=== PATIENT | male | born 1995 | race Caucasian/White ===

== ENCOUNTER 2021-08-31 00:18 | Inpatient (IN) | payer BC, OTHER ==
[2021-08-31] MEDS ORDERED: SODIUM CHLORIDE 0.9% 1,000 ML IV ONE (00:50)
--- NOTE | 2021-08-31 01:23 | ED ---
Extremity Problem HPI - General Chief complaint: Extremity Problem,Nontraumatic Stated complaint: Groin Pain Time Seen by Provider: 08/31/21 00:45 Source: patient, RN notes reviewed Mode of arrival: ambulatory - History of Present Illness Initial comments: This is a pleasant 26-year-old male who presents to the emergency department with right leg swelling and discoloration. Patient states that he had pain in the right groin and now notices swelling in the leg. No headache, no fever or chills, no changes in vision or hearing, no sore throat or difficulty with speech, no neck pain, no chest pain or shortness of breath, no abdominal pain, no nausea or vomiting, no changes in urination or bowel movements, no numbness or tingling, no skin rashes or lesions. MD Complaint: extremity pain - Related Data Allergies Allergy/AdvReac Type Severity Reaction Status Date / Time No Known Allergies Allergy Verified 08/31/21 00:41 Review of Systems ROS Statement: Those systems with pertinent positive or pertinent negative responses have been documented in the HPI. ROS Other: All systems not noted in ROS Statement are negative. Past Medical History Past Medical History: No Reported History History of Any Multi-Drug Resistant Organisms: None Reported Past Surgical History: No Surgical Hx Reported Past Psychological History: No Psychological Hx Reported Smoking Status: Vaper Past Alcohol Use History: None Reported Past Drug Use History: None Reported - Past Family History Father Family Medical History: Deep Vein Thrombosis (DVT) General Exam - General Exam Comments Initial Comments: Patient in no acute distress. Vital signs are reviewed. Patient afebrile. General appearance: alert, in no apparent distress Head exam: Present: atraumatic, normocephalic, normal inspection Eye exam: Present: normal appearance, PERRL, EOMI. Absent: scleral icterus, conjunctival injection, periorbital swelling ENT exam: Present: normal exam, mucous membranes moist Neck exam: Present: normal inspection. Absent: tenderness, meningismus, lymphadenopathy Respiratory exam: Present: normal lung sounds bilaterally. Absent: respiratory distress, wheezes, rales, rhonchi, stridor Cardiovascular Exam: Present: regular rate, normal rhythm, normal heart sounds. Absent: systolic murmur, diastolic murmur, rubs, gallop, clicks GI/Abdominal exam: Present: soft, normal bowel sounds. Absent: distended, tenderness, guarding, rebound, rigid Extremities exam: Present: full ROM, normal capillary refill (Capillary refill is less than 2 seconds. Pulses are 2+ to 4.), pedal edema (Right leg), other (Circumferential edema noted to right leg, compartments are soft, pulses are intact, capillary refill is less than 2 seconds.). Absent: normal inspection (Patient does have a mild, dark erythematous hue to the skin overlying the right lower extremity. No calor.), tenderness, joint swelling, calf tenderness Back exam: Present: normal inspection Neurological exam: Present: alert, oriented X3, CN II-XII intact Psychiatric exam: Present: normal affect, normal mood Skin exam: Present: warm, dry, intact, normal color, erythema (Right leg). Absent: rash Course Vital Signs 08/31/21 00:36 Temperature 98 F Pulse Rate 79 Respiratory 19 Rate Blood Pressure 132/78 O2 Sat by Pulse 98 Oximetry - Reevaluation(s) Reevaluation #1: 08/31/21 02:51 Medical record is reviewed Symptoms are improved here in the emergency department Patient is informed of results and questions answered Patient in no distress - Consultations Consultation #1: Vascular surgery consult. At 2 AM Medical Decision Making - Medical Decision Making Patient presents with edema to the right lower extremity. This is circumferential. Pulses are intact. Vascular surgery was consulted at 2 AM. He agreed with high intensity heparin protocol. Patient will be admitted for further evaluation and treatment. - Lab Data Result diagrams: 08/31/21 01:55 Lab Results 08/31/21 Range/Units 01:55 WBC 10.0 (3.8-10.6) k/uL RBC 5.04 (4.30-5.90) m/uL Hgb 15.0 (13.0-17.5) gm/dL Hct 45.8 (39.0-53.0) % MCV 90.9 (80.0-100.0) fL MCH 29.7 (25.0-35.0) pg MCHC 32.7 (31.0-37.0) g/dL RDW 12.4 (11.5-15.5) % Plt Count 170 (150-450) k/uL MPV 9.0 Neutrophils % 65 % Lymphocytes % 23 % Monocytes % 7 % Eosinophils % 3 % Basophils % 1 % Neutrophils # 6.5 (1.3-7.7) k/uL Lymphocytes # 2.3 (1.0-4.8) k/uL Monocytes # 0.7 (0-1.0) k/uL Eosinophils # 0.3 (0-0.7) k/uL Basophils # 0.1 (0-0.2) k/uL - Radiology Data Radiology results: report reviewed, image reviewed Disposition Clinical Impression: Deep vein thrombosis (DVT) of iliac vein of right lower extremity Disposition: ADMITTED IP TO THIS [facility] Condition: Stable Time of Disposition: 02:03
--- NOTE | 2021-08-31 01:38 | US ---
EXAMINATION TYPE: US venous doppler duplex LE RT DATE OF EXAM: 08/31/2021 1:18 AM COMPARISON: NONE CLINICAL HISTORY: leg pain. Patient states he has right groin pain x 5 days; patient states his right leg became red and tense today. SIDE PERFORMED: Right TECHNIQUE: The lower extremity deep venous system is examined utilizing real time linear array sonog lionel with graded compression, doppler sonography and color-flow sonography. VESSELS IMAGED: Common Femoral Vein Deep Femoral Vein Greater Saphenous Vein * Femoral Vein Popliteal Vein Small Saphenous Vein * Proximal Calf Veins (* superficial vessels) PTV Myke v Right Leg: Rouleaux flow throughout entire lower extremity. Difficulty compressing RLE veins and shirley ited blood flow throughout. IMPRESSION: No evidence of deep vein thrombosis in the right leg. There is slow flow in the veins.
[2021-08-31] MEDS ORDERED: HEPARIN SODIUM 1,000 UN/ML (10ML VL) IV ONE (01:56)
[2021-08-31] MEDS ORDERED: HEPARIN SODIUM 1,000 UN/ML (10ML VL) IV PRN (01:56)
[2021-08-31 02:11] LABS: Basophils # (A) 0.1 k/uL (0-0.2); Basophils % (A) 1 %; Eosinophils # (A) 0.3 k/uL (0-0.7); Eosinophils % (A) 3 %; HCT 45.8 % (39.0-53.0); Lymphocytes # (A) 2.3 k/uL (1.0-4.8); Lymphocytes % (A) 23 %; MCH 29.7 pg (25.0-35.0); MCHC 32.7 g/dL (31.0-37.0); MCV 90.9 fL (80.0-100.0); Monocytes # (A) 0.7 k/uL (0-1.0); Monocytes % (A) 7 %; Neutrophils # (A) 6.5 k/uL (1.3-7.7); Neutrophils % (A) 65 %; Platelet Count 170 k/uL (150-450); RBC 5.04 m/uL (4.30-5.90); RDW 12.4 % (11.5-15.5)
[2021-08-31] MEDS ORDERED: ONDANSETRON 4 MG/2 ML VIAL IVP PRN (02:44)
[2021-08-31] MEDS ORDERED: NALOXONE 0.4 MG/ML 1 ML VIAL IV PRN (02:44)
[2021-08-31] MEDS ORDERED: MORPHINE SULFATE 4 MG/ML SYRINGE IV STA (02:50)
[2021-08-31] MEDS: HEPARIN SOD,PORK IN 0.45% NACL 25,000 UNIT in 0.45% NACL 1 250ML.BAG IV SCH ×2 (02:50→18:06)
[2021-08-31] MEDS: SODIUM CHLORIDE 0.9% 1,000 ML IV SCH ×2 (02:59→12:01)
[2021-08-31 03:29] LABS: Potassium 3.9 mmol/L (3.5-5.1)
[2021-08-31 03:30] LABS: ALT 10 U/L (4-49); AST 17 U/L (17-59); African American GFR (CKD) >90 (>60 ml/min/1.73 sqM); Albumin 4.2 g/dL (3.5-5.0); Alkaline Phosphatase 65 U/L (38-126); Anion Gap 9 mmol/L; Blood Urea Nitrogen 17 mg/dL (9-20); Calcium 8.9 mg/dL (8.4-10.2); Carbon Dioxide 22 mmol/L (22-30); Chloride 106 mmol/L (98-107); Glucose 93 mg/dL (74-99); Non-African American GFR(CKD) >90 (>60 ml/min/1.73 sqM); Sodium 137 mmol/L (137-145); Total Bilirubin 0.6 mg/dL (0.2-1.3); Total Protein 7.5 g/dL (6.3-8.2)
[2021-08-31 03:48] LABS: INR 1.1 (<1.2); Partial Thromboplastin Time 79.4 sec (22.0-30.0); Prothrombin Time 12.2 sec (9.0-12.0)
[2021-08-31] MEDS: MORPHINE SULFATE 4 MG/ML SYRINGE IV PRN (09:14)
[2021-08-31] MEDS: IOPAMIDOL CONTRAST (ORAL USE) VIAL PO PRN ×2 (11:04→11:32)
--- NOTE | 2021-08-31 11:51 | P.GSCN ---
History of Present Illness Consult date: 08/31/21 Reason for Consult: DVT History of present illness: This a 26-year-old male who presented to the emergency department with complaints of right groin pain that started a few days ago. He then noticed that the right lower extremity started becoming swollen tense and hard been having some tingling as well as color change. He denied any trauma to his right leg. Denies any other previous issues with DVT or pulmonary embolism. He denies any pain with ambulation. He denies any recent surgery, recent travel, denies sedentary lifestyle, or history of clotting disorder. He does state his maternal aunt has a history of the 2 or 3 DVTs unprovoked and is on life long anti-coagulation. Labs were unremarkable. He was started on a heparin drip. Venous duplex showed no evidence of deep vein thrombosis in the right leg. Slow flow in the veins. Review of Systems A 14 point review of systems was completed all pertinent positives and negatives as stated in the HPI. Past Medical History Past Medical History: No Reported History History of Any Multi-Drug Resistant Organisms: None Reported Past Surgical History: No Surgical Hx Reported Past Anesthesia/Blood Transfusion Reactions: No Reported Reaction Past Psychological History: No Psychological Hx Reported Smoking Status: Vaper Past Alcohol Use History: None Reported Past Drug Use History: None Reported - Past Family History Father Family Medical History: Deep Vein Thrombosis (DVT) Medications and Allergies Home Medications Medication Instructions Recorded Confirmed Type Acetaminophen Tab [Tylenol Tab] 1,000 mg PO Q6HR PRN 08/31/21 08/31/21 History Cholecalciferol [Vitamin D3 (25 25 mcg PO DAILY 08/31/21 08/31/21 History Mcg = 1000 Iu)] Ibuprofen [Motrin Ib] 800 mg PO Q8H PRN 08/31/21 08/31/21 History Vitamin B Complex 1 cap PO DAILY 08/31/21 08/31/21 History Zinc 50 mg PO DAILY 08/31/21 08/31/21 History Allergies Allergy/AdvReac Type Severity Reaction Status Date / Time No Known Allergies Allergy Verified 08/31/21 06:51 Surgical - Exam Vital Signs Temp Pulse Resp BP Pulse Ox 98 F 79 19 132/78 98 08/31/21 00:36 08/31/21 00:36 08/31/21 00:36 08/31/21 00:36 08/31/21 00:36 General appearance: The patient is alert, oriented, appears in no acute distress. HET: Head is normocephalic and atraumatic. Neck: Supple without lymphadenopathy. Trachea midline. No audible carotid bruit. Heart: S1 S2. Regular rate and rhythm. Lungs: Clear to auscultation bilaterally. Abdomen: Soft, nontender, nondistended. Extremities: Normal skin color and turgor. Tenderness to palpation in right groin/pelvis. No tenderness in the right calf with squeezing. Right lower extremity edema. Radial and pedal pulses are 2/4 bilaterally. Neurological: No focal deficits. Strength and sensation are grossly intact. Results - Labs 08/31/21 01:55 08/31/21 02:57 Abnormal Lab Results - Last 24 Hours (Table) 08/31/21 08/31/21 Range/Units 03:10 10:46 PT 12.2 H (9.0-12.0) sec APTT 79.4 H 67.6 H (22.0-30.0) sec Diabetes panel 08/31/21 Range/Units 02:57 Sodium 137 (137-145) mmol/L Potassium 3.9 (3.5-5.1) mmol/L Chloride 106 (98-107) mmol/L Carbon Dioxide 22 (22-30) mmol/L BUN 17 (9-20) mg/dL Creatinine 0.84 (0.66-1.25) mg/dL Glucose 93 (74-99) mg/dL Calcium 8.9 (8.4-10.2) mg/dL AST 17 (17-59) U/L ALT 10 (4-49) U/L Alkaline Phosphatase 65 (38-126) U/L Total Protein 7.5 (6.3-8.2) g/dL Albumin 4.2 (3.5-5.0) g/dL Calcium panel 08/31/21 Range/Units 02:57 Calcium 8.9 (8.4-10.2) mg/dL Albumin 4.2 (3.5-5.0) g/dL Pituitary panel 08/31/21 Range/Units 02:57 Sodium 137 (137-145) mmol/L Potassium 3.9 (3.5-5.1) mmol/L Chloride 106 (98-107) mmol/L Carbon Dioxide 22 (22-30) mmol/L BUN 17 (9-20) mg/dL Creatinine 0.84 (0.66-1.25) mg/dL Glucose 93 (74-99) mg/dL Calcium 8.9 (8.4-10.2) mg/dL Adrenal panel 08/31/21 Range/Units 02:57 Sodium 137 (137-145) mmol/L Potassium 3.9 (3.5-5.1) mmol/L Chloride 106 (98-107) mmol/L Carbon Dioxide 22 (22-30) mmol/L BUN 17 (9-20) mg/dL Creatinine 0.84 (0.66-1.25) mg/dL Glucose 93 (74-99) mg/dL Calcium 8.9 (8.4-10.2) mg/dL Total Bilirubin 0.6 (0.2-1.3) mg/dL AST 17 (17-59) U/L ALT 10 (4-49) U/L Alkaline Phosphatase 65 (38-126) U/L Total Protein 7.5 (6.3-8.2) g/dL Albumin 4.2 (3.5-5.0) g/dL - Imaging Comments: Right lower extremity venous Doppler reports no evidence of deep vein thrombosis in the right leg there is slow flow in the veins. Assessment and Plan Assessment: 1. Right lower extremity pain with swelling 2. Slow flow in veins of right lower extremity per venous duplex Plan: 1. Continue heparin drip at this time 2. CT abdomen and pelvis venous phase ordered 3. Will consult hematology 4. Further recommendations forthcoming per vascular surgeon Thank you for this consultation, we will continue to follow. The impression and plan of care has been dictated as directed. Dr. Troncoso I performed a history and examination of this patient, discussed the same with the dictator. I agree with the dictator's note ,documented as a scribe. Any additional findings or plans will be noted.
--- NOTE | 2021-08-31 12:10 | P.HPIM ---
History of Present Illness 26-year-old male came in with complaints of right lower extremity swelling and tingling numbness in change in color. Patient denied any trauma. Patient does have family history of DVT in multiple family members. Although there is no DVT that was evident in the right lower DVT but showed significantly slowed venous flow in the right leg. Because of this is a concern that patient may have iliac thrombus because of which patient will undergo CT of the abdomen with contrast. Patient denied any significant unintentional weight loss. Patient doesn't have any fever chills patient denied any chest pain at this time. Denied any shortness of breath. Patient is having some pain in the right lower extremity and predominantly in the right groin area. REVIEW OF SYSTEMS: CONSTITUTIONAL: No fever, no malaise, no fatigue. HEENT: No recent visual problems or hearing problems. Denied any sore throat. CARDIOVASCULAR: No chest pain, orthopnea, PND, no palpitations, no syncope. PULMONARY: No shortness of breath, no cough, no hemoptysis. GASTROINTESTINAL: No diarrhea, no nausea, no vomiting, no abdominal pain. NEUROLOGICAL: No headaches, no weakness, no numbness. HEMATOLOGICAL: Denies any bleeding or petechiae. GENITOURINARY: Denies any burning micturition, frequency, or urgency. MUSCULOSKELETAL/RHEUMATOLOGICAL: Denies any joint pain, swelling, or any muscle pain. ENDOCRINE: Denies any polyuria or polydipsia. The rest of the 14-point review of systems is negative. PHYSICAL EXAMINATION: GENERAL: The patient is alert and oriented x3, not in any acute distress. Well developed, well nourished. HEENT: Pupils are round and equally reacting to light. EOMI. No scleral icterus. No conjunctival pallor. Normocephalic, atraumatic. No pharyngeal erythema. No thyromegaly. CARDIOVASCULAR: S1 and S2 present. No murmurs, rubs, or gallops. PULMONARY: Chest is clear to auscultation, no wheezing or crackles. ABDOMEN: Soft, nontender, nondistended, normoactive bowel sounds. No palpable organomegaly. MUSCULOSKELETAL: As mentioned in HPI EXTREMITIES: No cyanosis, clubbing, edema of the right lower extremity NEUROLOGICAL: Gross neurological examination did not reveal any focal deficits. SKIN: No rashes. Assessment and plan -Right lower exudate swelling and pain: Possibility of for DVT in the right erick cs, CT of the abdomen as mentioned above. Patient will be continued on IV heparin -Nicotine use: Counseling was provided DVT prophylaxis: Patient is on IV heparin Past Medical History Past Medical History: No Reported History History of Any Multi-Drug Resistant Organisms: None Reported Past Surgical History: No Surgical Hx Reported Past Anesthesia/Blood Transfusion Reactions: No Reported Reaction Past Psychological History: No Psychological Hx Reported Smoking Status: Vaper Past Alcohol Use History: None Reported Past Drug Use History: None Reported - Past Family History Father Family Medical History: Deep Vein Thrombosis (DVT) Medications and Allergies Home Medications Medication Instructions Recorded Confirmed Type Acetaminophen Tab [Tylenol Tab] 1,000 mg PO Q6HR PRN 08/31/21 08/31/21 History Cholecalciferol [Vitamin D3 (25 25 mcg PO DAILY 08/31/21 08/31/21 History Mcg = 1000 Iu)] Ibuprofen [Motrin Ib] 800 mg PO Q8H PRN 08/31/21 08/31/21 History Vitamin B Complex 1 cap PO DAILY 08/31/21 08/31/21 History Zinc 50 mg PO DAILY 08/31/21 08/31/21 History Allergies Allergy/AdvReac Type Severity Reaction Status Date / Time No Known Allergies Allergy Verified 08/31/21 06:51 Physical Exam Vitals: Vital Signs Temp Pulse Resp BP Pulse Ox 08/31/21 07:58 98.3 F 12 08/31/21 00:36 98 F 79 19 132/78 98 Intake and Output 08/30/21 08/31/21 08/31/21 22:59 06:59 14:59 Intake Total 293.4 142.543 Balance 293.4 142.543 Intake: Intake, IV Titration 293.4 142.543 Amount Heparin Sod,Pork in 0.45% 33.4 142.543 NaCl 25,000 unit In 0.45 % NaCl 1 250ml.bag @ 18 UNITS/KG/HR 16.737 mls/hr IV .[id number] [facility] Rx#: [id number] Sodium Chloride 0.9% 1, 260 000 ml @ 130 mls/hr IV . Q7H42M [facility] Rx#:[id number] Other: Weight 92.986 kg Results CBC & Chem 7: 08/31/21 01:55 08/31/21 02:57 Labs: Abnormal Lab Results - Last 24 Hours (Table) 08/31/21 08/31/21 Range/Units 03:10 10:46 PT 12.2 H (9.0-12.0) sec APTT 79.4 H 67.6 H (22.0-30.0) sec Thrombosis Risk Factor Assmnt - Choose All That Apply Any of the Below Risk Factors Present?: Yes Each Factor Represents 1 point: Obesity (BMI >25) Each Risk Factor Represents 3 Points: Family history of DVT/PE Thrombosis Risk Factor Assessment Total Risk Factor Score: 4 Thrombosis Risk Factor Assessment Level: Moderate Risk
--- NOTE | 2021-08-31 13:20 | CT ---
EXAMINATION TYPE: CT abdomen pelvis w con DATE OF EXAM: 08/31/2021 COMPARISON: Venous Doppler study dated 08/31/2021 HISTORY: Right inguinal pain and swelling. CT DLP: 1291.6 mGycm Automated exposure control for dose reduction was used. TECHNIQUE: Helical acquisition of images was performed from the lung bases through the pelvis. CONTRAST: Performed with Oral Contrast and with IV Contrast, patient injected with 100ml mL of Isovue 300. FINDINGS: LUNG BASES: Suspected tiny filling defect within the right lower lobe pulmonary arteries suggestive o f tiny pulmonary emboli. LIVER/GB: Unremarkable liver. Suspected tiny gallbladder calculus without evidence of acute cholecyst itis. PANCREAS: No significant abnormality is seen. SPLEEN: No significant abnormality is seen. ADRENALS: No significant abnormality is seen. KIDNEYS: Left extrarenal pelvis, otherwise unremarkable kidneys. FREE AIR: No free air is visualized. RETROPERITONEAL ADENOPATHY: None visualized REPRODUCTIVE ORGANS: No significant abnormality is seen URINARY BLADDER: Incompletely distended with slightly thickened wall, please correlate with urinalys is results. PELVIC ADENOPATHY: No pathologically enlarged pelvic lymph nodes. OSSEOUS STRUCTURES: No significant abnormality is seen. BOWEL: Suboptimal assessment of the small and large bowel due to paucity of intra-abdominal fat. No evidence of bowel obstruction. Fecal loading of the colon. OTHER: Elongated hyperdensity seen within the right external iliac vein extending for about 4.8 cm wi th increased size of the vein. This could represent an acute thrombus however other lesion at that lo cation cannot be excluded. Reduced enhancement of the visualized portion of the right lower extremity veins more inferiorly. Evident thrombus is seen within the more superior portion of the right medical doctor md al iliac vein as well as the right common iliac vein with extension of the thrombus into the most inf erior aspect of the IVC. The remainder of the IVC is apparently patent as well as the renal veins. Un remarkable left iliac veins. Associated significant fat stranding is seen in the right side of the pe lvis, right inguinal region and right upper thigh, possibly secondary to the deep venous thrombosis. Acute infectious/inflammatory process at that location can't be excluded. Small amount of fluid is se en in the pelvis. IMPRESSION: Deep venous thrombosis of the right common iliac vein extending to the inferior aspect of the IVC wit h apparent thrombosis of the remainder of the right iliac and visualized right lower extremity veins. Hyperdense area is seen within the right external iliac vein that could represent an acute thrombus h owever other lesion at that location can't be excluded. Suspected right lower lobe pulmonary emboli. Other findings as described above. Findings were discussed with the referring physician immediately after the CT scan was performed.
[2021-08-31] MEDS: HYDROcodone/APAP 7.5-325MG 1 EACH TAB PO PRN ×2 (13:49→19:23)
--- NOTE | 2021-08-31 15:30 | P.CONS ---
History of Present Illness - Reason for Consult Consult date: 08/31/21 RLE Pain, Requesting physician: Kailash Simmons - History of Present Illness Daniele is a 26 year old male patient presenting with pain in RLE, Doppler shows evidence of Rouleaux flow through entire RLE, although no evidence of acute thrombus. A Ct of Abdomen and Pelvis has been ordered to further assess iliac nodes and venous system. Review of CT abdomen reveal iliac vein Thrombus, present during discussion with Vascular surgery who plans on thrombolysis today. CTA ordered as well as PE could not be ruled out. He does have a family history of clotting in paternal aunt and father. Denies IV drug abuse, hormone or steroid injections into groin. He does state was sick a month ago, no vaccina tion against covid and no infection that he recalls. He states he takes multiple supplements and works out a lot. He does "vape" tobacco daily. Review of Systems All systems: negative Constitutional: Reports as per HPI Past Medical History Past Medical History: No Reported History History of Any Multi-Drug Resistant Organisms: None Reported Past Surgical History: No Surgical Hx Reported Past Anesthesia/Blood Transfusion Reactions: No Reported Reaction Past Psychological History: No Psychological Hx Reported Smoking Status: Vaper Past Alcohol Use History: None Reported Past Drug Use History: None Reported - Past Family History Father Family Medical History: Deep Vein Thrombosis (DVT) Medications and Allergies Home Medications Medication Instructions Recorded Confirmed Type Acetaminophen Tab [Tylenol Tab] 1,000 mg PO Q6HR PRN 08/31/21 08/31/21 History Cholecalciferol [Vitamin D3 (25 25 mcg PO DAILY 08/31/21 08/31/21 History Mcg = 1000 Iu)] Ibuprofen [Motrin Ib] 800 mg PO Q8H PRN 08/31/21 08/31/21 History Vitamin B Complex 1 cap PO DAILY 08/31/21 08/31/21 History Zinc 50 mg PO DAILY 08/31/21 08/31/21 History Allergies Allergy/AdvReac Type Severity Reaction Status Date / Time No Known Allergies Allergy Verified 08/31/21 06:51 Physical Exam Vitals: Vital Signs Temp Pulse Resp BP Pulse Ox 08/31/21 07:58 98.3 F 12 08/31/21 00:36 98 F 79 19 132/78 98 Intake and Output 08/30/21 08/31/21 08/31/21 22:59 06:59 14:59 Intake Total 293.4 Balance 293.4 Intake: Intake, IV Titration 293.4 Amount Heparin Sod,Pork in 0.45% 33.4 NaCl 25,000 unit In 0.45 % NaCl 1 250ml.bag @ 18 UNITS/KG/HR 16.737 mls/hr IV .[id number] [facility] Rx#: [id number] Sodium Chloride 0.9% 1, 260 000 ml @ 130 mls/hr IV . Q7H42M [facility] Rx#:[id number] Other: Weight 92.986 kg - Constitutional General appearance: cooperative, no acute distress - EENT Eyes: edentulous, PERRLA ENT: NA/AT - Neck Neck: normal ROM - Respiratory Respiratory: bilateral: CTA - Cardiovascular Rhythm: regular leg Peripheral Edema: right: 3+ - Gastrointestinal General gastrointestinal: soft - Integumentary Integumentary: normal - Neurologic Neurologic: CNII-XII intact - Musculoskeletal Musculoskeletal: generalized weakness, right sided weakness - Psychiatric Psychiatric: A&O x's 3, appropriate affect, intact judgment & insight Results CBC & Chem 7: 08/31/21 01:55 08/31/21 02:57 Labs: Abnormal Lab Results - Last 24 Hours (Table) 08/31/21 08/31/21 Range/Units 03:10 10:46 PT 12.2 H (9.0-12.0) sec APTT 79.4 H 67.6 H (22.0-30.0) sec CT scan - abdomen: report reviewed CT scan - pelvis: report reviewed Venous US: report reviewed Assessment and Plan (1) Deep vein thrombosis (DVT) of iliac vein of right lower extremity Current Visit: Yes Status: Acute Code(s): I82.421 - ACUTE EMBOLISM AND THROMBOSIS OF RIGHT ILIAC VEIN SNOMED Code(s): 546123085 Plan: - Full hypercoag work-up as outpatient - CTA for assessment of PE - Vaping Cessation - Check Testosterone level (denies steroid or bio-identical hormone use with work outs) Unprovoked thrombus with family history.
[2021-09-01 04:05] LABS: Cardiolipin Ab IgG Interp NEGATIVE (NEGATIVE); Cardiolipin Ab IgM Interp NEGATIVE (NEGATIVE); Cardiolipin IgA Antibody <2.0 U/mL; Cardiolipin IgM Antibody <1.5 U/mL
[2021-09-01] MEDS: HYDROcodone/APAP 7.5-325MG 1 EACH TAB PO PRN (06:13)
[2021-09-01] MEDS: SODIUM CHLORIDE 0.9% 1,000 ML IV SCH ×4 (08:23→18:40)
[2021-09-01 09:20] LABS: Basophils % (A) 0 %; Eosinophils # (A) 0.2 k/uL (0-0.7); Eosinophils % (A) 3 %; HCT 42.4 % (39.0-53.0); HGB 13.6 gm/dL (13.0-17.5); Lymphocytes # (A) 2.2 k/uL (1.0-4.8); Lymphocytes % (A) 30 %; MCH 30.2 pg (25.0-35.0); MCV 94.3 fL (80.0-100.0); Mean Platelet Volume 7.9; Monocytes # (A) 0.4 k/uL (0-1.0); Monocytes % (A) 6 %; Neutrophils # (A) 4.2 k/uL (1.3-7.7); Neutrophils % (A) 58 %; Platelet Count 177 k/uL (150-450); RDW 13.1 % (11.5-15.5); WBC 7.3 k/uL (3.8-10.6)
[2021-09-01] MEDS ORDERED: LIDOCAINE 1% INJ 10MG/ML (20 ML MDV) ONE (09:47)
[2021-09-01] MEDS ORDERED: LIDOCAINE 1% INJ 10MG/ML (20 ML MDV) SQ ONE (10:20)
[2021-09-01] MEDS: MIDAZOLAM 2 MG/2 ML VIAL IV ONE (10:27)
[2021-09-01] MEDS ORDERED: ALTEPLASE 2 MG VIAL (CATHFLO) IV STA (10:29)
[2021-09-01] MEDS: ALTEPLASE 10 MG in SODIUM CHLORIDE 0.9% 90 ML IV ONE ×2 (10:57→19:47)
[2021-09-01] MEDS ORDERED: IV FLUID CONTINUATION 1,000 ML IV ONE (10:57)
[2021-09-01] MEDS: HEPARIN SOD,PORK IN 0.45% NACL 25,000 UNIT in 0.45% NACL 1 250ML.BAG IV SCH ×2 (10:58→12:27)
--- NOTE | 2021-09-01 11:02 | P.OP ---
Date of Procedure: 09/01/21 Preoperative Diagnosis: Right common and external iliac venous thrombosis. Postoperative Diagnosis: Same. Procedure(s) Performed: #1: Ultrasound-guided cannulation right popliteal vein. #2: Right iliac venogram. #3: Initiation of TPA thrombolytic lysis. Anesthesia: local Surgeon: Shahzad Troncoso Estimated Blood Loss (ml): 2 Pathology: none sent Condition: stable Disposition: ICU (Per protocol.) Indications for Procedure: Patient is a 26-year-old male who presented with a chief complaint of right leg edema. Venous duplex demonstrated no evidence of deep venous thrombosis however rouleaux formation was noted. CT scan of the abdomen and pelvis with contrast and the venous phase demonstrated complete occlusion of the common and external iliac venous segment. Because of the degree of thrombotic burden the patient is offered thrombo-lysis. Description of Procedure: Patient was brought to the special procedures department. He was placed in the prone position. The right popliteal space area was sterilely prepped and draped in usual manner. Utilizing ultrasound the popliteal vein was noted. 1% Xylocaine was utilized for local anesthesia of the tissues overlying the vein. Through this anesthetized area and with the aid of ultrasound a multipurpose needle was utilized cannulate the vein. Once cannulated soft-tip guidewire was advanced. The needle was withdrawn and a 6-[place] sheath was placed. Angled glide catheter and guidewire combination were advanced to the proximal femoral venous segment. Venogram was performed. This demonstrated complete occlusion of the iliac vein. Guidewire and catheter combination were then utilized to cross the thrombus. Guidewire was withdrawn and contrast injection demonstrated catheter to be in the inferior vena cava. The guidewire was readvanced through the catheter and the catheter was withdrawn and exchanged for an infusion catheter. The infusion length of the catheter cross the entire length of the occluded segment. 2 mg of TPA were then infused directly into the thrombus. The sheath was secured to skin with silk suture. Proper dressings were applied. Plan is for 1 mg of TPA infusion per hour via the infusion catheter and 500 units of heparin per hour via the side port of the sheath. This infusion is to continue times approximately 24 hours with plans for repeat imaging tomorrow 09/02/2021. Total fluoroscopy time: 1.2 minutes. Total contrast volume 20 ML's of Isovue 250. Conscious sedation time 11 minutes.
--- NOTE | 2021-09-01 11:04 | IR ---
EXAMINATION TYPE: IR transcath infusion therapy DATE OF EXAM: 09/01/2021 CLINICAL HISTORY: Right leg DVT. TECHNIQUE: Fluoroscopy. COMPARISON: CT abdomen and pelvis from one day earlier FINDINGS: Fluoroscopic guidance was provided during right lower extremity DVT intravascular treatmen t procedure performed by Dr. Chowdhury. A total of 72 seconds of fluoroscopic time was utilized durin g the procedure and 0 spot images were transferred to PACS. IMPRESSION: As Above.
[2021-09-01 11:21] LABS: Glucose,Whole Blood 83 mg/dL (75-99)
[2021-09-01 11:37] LABS: Prothrombin Time 11.1 sec (9.0-12.0)
[2021-09-01] MEDS: MORPHINE SULFATE 4 MG/ML SYRINGE IV PRN ×2 (12:28→21:24)
--- NOTE | 2021-09-01 13:38 | P.CNPUL ---
History of Present Illness Consult date: 09/01/21 Requesting physician: Cheri Flores Reason for consult: DVT Chief complaint: Right leg pain and swelling. History of present illness: Pulmonary consult dated 09/01/2021. A 26-year-old otherwise healthy male, who presents to the emergency department, with pain and swelling as well as discoloration in the right thigh and leg. He states that he noticed some pain in the difficulty or discomfort in his right groin area. He got worse, so he came to the emergency room to be evaluated. He apparently was found to have a right iliac vein thrombosis. The patient had a right popliteal sheath placed by vascular surgery, and the patient was given TPA. Currently, he's on room air. He is getting saline at 10 mL an hour, heparin via weightbase protocol, and TPA 1 mg an hour. The patient had an u ltrasound-guided cannulation of the right popliteal vein, right iliac venogram, and TPA thrombolytic lysis. The patient is resting comfortably in the intensive care unit, room 256. He does not smoke cigarettes. He does vape. He doesn't have a primary care physician. He doesn't take any medications at home. He is very active. White count 7.3, within normal hemoglobin hematocrit and platelet count. The patient's PTT when last checked was 49.1. Sodium 137, potassium 3.9, chlorides 106, CO2 22, BUN 17, and creatinine 0.84. Review of Systems REVIEW OF SYSTEMS: CONSTITUTIONAL: [Negative.] NEUROLOGIC: [ Negative.] HEENT: [ Negative.] CARDIAC: Right leg and thigh pain, swelling, and right groin pain. PULMONARY: [Negative.] GI: [Negative.] : [Negative.] RHEUMATOLOGIC: [ Negative.] IMMUNOLOGIC: [ Negative.] ENDOCRINE: [Negative. ] DERMATOLOGIC: [Negative.] Past Medical History Past Medical History: No Reported History History of Any Multi-Drug Resistant Organisms: None Reported Past Surgical History: No Surgical Hx Reported Past Anesthesia/Blood Transfusion Reactions: No Reported Reaction Past Psychological History: No Psychological Hx Reported Smoking Status: Vaper Past Alcohol Use History: None Reported Past Drug Use History: None Reported - Past Family History Father Family Medical History: Deep Vein Thrombosis (DVT) Medications and Allergies Home Medications Medication Instructions Recorded Confirmed Type Acetaminophen Tab [Tylenol Tab] 1,000 mg PO Q6HR PRN 08/31/21 08/31/21 History Cholecalciferol [Vitamin D3 (25 25 mcg PO DAILY 08/31/21 08/31/21 History Mcg = 1000 Iu)] Ibuprofen [Motrin Ib] 800 mg PO Q8H PRN 08/31/21 08/31/21 History Vitamin B Complex 1 cap PO DAILY 08/31/21 08/31/21 History Zinc 50 mg PO DAILY 08/31/21 08/31/21 History Allergies Allergy/AdvReac Type Severity Reaction Status Date / Time No Known Allergies Allergy Verified 08/31/21 06:51 Physical Exam Osteopathic Statement: *. No significant issues noted on an osteopathic structural exam other than those noted in the History and Physical/Consult. Vitals: Vital Signs Temp Pulse Pulse Resp BP BP Pulse Ox 09/01/21 13:00 98.5 F 79 20 133/79 96 09/01/21 12:55 60 12 133/79 98 09/01/21 08:25 98.7 F 55 L 18 127/76 98 09/01/21 04:00 99.0 F 84 16 147/79 99 09/01/21 02:00 62 16 09/01/21 00:00 99.2 F 62 16 121/71 99 08/31/21 21:30 98.4 F 67 16 125/77 98 08/31/21 20:40 98.3 F 62 16 131/77 98 08/31/21 19:19 62 16 08/31/21 13:46 98.5 F 60 16 126/77 97 Intake and Output 08/31/21 09/01/21 09/01/21 22:59 06:59 14:59 Intake Total 340.427 440 Output Total 1525 600 Balance 340.427 1525 -160 Intake: IV 440 Alteplase 10 mg In Sodium 180 Chloride 0.9% 90 ml @ 1 MG/HR 10 mls/hr IV .Q10H [facility] Rx#:[id number] Heparin Sod,Pork in 0.45% 10 NaCl 25,000 unit In 0.45 % NaCl 1 250ml.bag @ 5 mls/hr IV .Q24H [facility] Rx#: [id number] Sodium Chloride 0.9% 1, 50 000 ml @ 25 mls/hr IV . Q24H [facility] Rx#:[id number] Intake, IV Titration 340.427 Amount Heparin Sod,Pork in 0.45% 100.427 NaCl 25,000 unit In 0.45 % NaCl 1 250ml.bag @ 18 UNITS/KG/HR 16.737 mls/hr IV .[id number] [facility] Rx#: [id number] Sodium Chloride 0.9% 1, 240 000 ml @ 130 mls/hr IV . Q7H42M [facility] Rx#:[id number] Output: Urine 1525 600 Other: Voiding Method Toilet Toilet Urinal # Voids 2 Results No acute distress, oriented 3. HEENT examination is grossly unremarkable. Neck supple. Full range of motion. No adenopathy thyromegaly or neck vein distention. Cardiovascular examination reveals regular rhythm rate. S1-S2 normal. No S3 or S4. No discernible murmur noted. Heart rate 79 bpm. Lungs reveal clear breath sounds. Breath sounds are equal bilaterally. No adventitious lung sounds including wheezes rhonchi or crackles. Abdomen soft bowel sounds are heard. No masses or tenderness. Extremities reveal a normal left lower extremity, but a swollen right thigh, and leg. Skin is without rash or lesion. Neurologic examination is brief but nonfocal. - Laboratory Findings CBC and BMP: 09/01/21 08:44 08/31/21 02:57 PT/INR, D-dimer PT 11.1 sec (9.0-12.0) 09/01/21 11:00 INR 1.0 (<1.2) 09/01/21 11:00 Abnormal lab findings: Abnormal Labs 08/31/21 08/31/21 08/31/21 03:10 10:46 17:33 PT 12.2 H APTT 79.4 H 67.6 H 49.2 H Testosterone Level SARS-CoV-2 Ab,Total 08/31/21 08/31/21 09/01/21 17:33 17:33 08:44 PT APTT 49.1 H Testosterone Level 65.00 L SARS-CoV-2 Ab,Total Positive A Assessment and Plan Assessment: Right iliac vein thrombosis, status post ultrasound-guided insertion of a right popliteal sheath, right iliac venogram, and TPA thrombolytic lysis, postop day #0. No other major medical problems or issues. Plan: Plan dated 09/01/2021. Patient's resting comfortably in the intensive care unit. We will continue to follow the patient and make recommendations where appropriate. Hemodynamically, the patient is stable. His respiratory status is stable. He remains on IV heparin, and TPA at 1 mg an hour. No additional recommendations are made. We will continue to follow the patient and make recommendations where appropriate. Time with Patient: Greater than 30
--- NOTE | 2021-09-01 14:05 | PN ---
PROGRESS NOTE DATE OF SERVICE: 09/01/2021 CHIEF COMPLAINT: Swollen leg. Daniele seen today in followup. He just came back from ultrasound-guided cannulization of right popliteal vein and initiation of thrombolytic therapy. He feels fine. He tolerated the recent procedure fairly well. He denies any shortness of breath, chest pain, nausea or vomiting. He denies any melena, hematochezia, hematuria or hemoptysis. His current medication is reviewed in his electronic medical record. On physical examination, he is alert, oriented x3. He does not appear to be in acute distress. His vital signs are temperature 98.5, pulse 79, respiration 20, blood pressure 133/79. HEENT: Normocephalic, atraumatic. NECK: Supple. CHEST: Equal expansion bilaterally. LUNGS: Clear to auscultation. HEART: Heart is in regular rhythm. ABDOMEN: Soft. No tenderness. EXTREMITIES: He has edema in the right lower leg. IMPRESSION: Extensive deep venous thrombosis involving the right common iliac vein. The patient just underwent tPA earlier this morning, which he tolerated fairly well. This event appears to be unprovoked. He does have a family history of deep venous thrombosis in his father and also his aunt; they are in their early 50s. He is otherwise a relatively healthy gentleman. RECOMMENDATION: 1. Continue anticoagulation at this point in time. 2. The patient eventually will be transitioned to oral anticoagulation and likely he is going to require lifetime anticoagulation. 3. Hypercoagulable workup will be performed in the outpatient setting. At this point in time it is not going to alter his medical management. The above was discussed in detail with the patient. I have answered all of his questions. MMODL / IJN: [id number] /
--- NOTE | 2021-09-01 16:03 | P.PN ---
Subjective 26-year-old male came in with complaints of right lower extremity swelling and tingling numbness in change in color. Patient denied any trauma. Patient does have family history of DVT in multiple family members. Although there is no DVT that was evident in the right lower DVT but showed significantly slowed venous flow in the right leg. Because of this is a concern that patient may have iliac thrombus because of which patient will undergo CT of the abdomen with contrast. Patient denied any significant unintentional weight loss. Patient doesn't have any fever chills patient denied any chest pain at this time. Denied any shortness of breath. Patient is having some pain in the right lower extremity and predominantly in the right groin area. 09/01/2021 Patient had ECOS procedure today. Patient is alert and TPA admitted to ICU. P rolando is also found to be positive for COVID-19 which may have contributed to his DVT. Constitutional: Denied any fatigue denied any fever. Cardio vascular: denied any chest pain, palpitations Gastrointestinal denied any nausea vomiting Pulmonary: Denied any shortness of breath cough Neurologic denied any new focal deficits All inpatient medications were reviewed and appropriate changes in these medications as dictated in the interval history and assessment and plan. PHYSICAL EXAMINATION: GENERAL: The patient is alert and oriented x3, not in any acute distress. Well developed, well nourished. HEENT: Pupils are round and equally reacting to light. EOMI. No scleral icterus. No conjunctival pallor. Normocephalic, atraumatic. No pharyngeal erythema. No thyromegaly. CARDIOVASCULAR: S1 and S2 present. No murmurs, rubs, or gallops. PULMONARY: Chest is clear to auscultation, no wheezing or crackles. ABDOMEN: Soft, nontender, nondistended, normoactive bowel sounds. No palpable organomegaly. MUSCULOSKELETAL: As mentioned in HPI EXTREMITIES: No cyanosis, clubbing, edema of the right lower extremity NEUROLOGICAL: Gross neurological examination did not reveal any focal deficits. SKIN: No rashes. Assessment and plan -Extensive DVT of the right common and external iliac patient is status post ECOS and presently on TPA. Possible prostrating factor is being sent COVID-19 infection patient is presently symptomatic from COVID-19. Patient may have a hypercoagulable state patient does have family history hypercoagulable workup as an outpatient -Recent COVID-19 infection: Patient is asymptomatic. -Nicotine use: Counseling was provided Objective - Vital Signs Vital signs: Vital Signs Temp 98.5 F 09/01/21 13:00 Pulse 67 09/01/21 15:00 Resp 13 09/01/21 15:00 BP 139/80 09/01/21 15:00 Pulse Ox 96 09/01/21 15:00 Intake & Output 08/31/21 09/01/21 09/01/21 18:59 06:59 18:59 Intake Total 476.658 1541 Output Total 1525 600 Balance 482.970 -1525 760 Intake: IV 360 Alteplase 10 mg In Sodium 40 Chloride 0.9% 90 ml @ 1 MG/HR 10 mls/hr IV .Q10H [facility] Rx#:[id number] Heparin Sod,Pork in 0.45% 20 NaCl 25,000 unit In 0.45 % NaCl 1 250ml.bag @ 5 mls/hr IV .Q24H [facility] Rx#: [id number] Sodium Chloride 0.9% 1, 100 000 ml @ 25 mls/hr IV . Q24H [facility] Rx#:[id number] Intake, IV Titration 482.970 Amount Heparin Sod,Pork in 0.45% 242.970 NaCl 25,000 unit In 0.45 % NaCl 1 250ml.bag @ 18 UNITS/KG/HR 16.737 mls/hr IV .[id number] [facility] Rx#: [id number] Sodium Chloride 0.9% 1, 240 000 ml @ 130 mls/hr IV . Q7H42M [facility] Rx#:[id number] Oral 1000 Output: Urine 1525 600 Other: Voiding Method Toilet Toilet Urinal # Voids 2 - Labs CBC & Chem 7: 09/01/21 08:44 08/31/21 02:57 Labs: Abnormal Lab Results - Last 24 Hours (Table) 08/31/21 08/31/21 08/31/21 Range/Units 17:33 17:33 17:33 APTT 49.2 H (22.0-30.0) sec Testosterone Level 65.00 L (123.06-813.86) ng/mL SARS-CoV-2 Ab,Total Positive A (Negative) 09/01/21 Range/Units 08:44 APTT 49.1 H (22.0-30.0) sec Testosterone Level (123.06-813.86) ng/mL SARS-CoV-2 Ab,Total (Negative) Microbiology - Last 24 Hours (Table) 08/31/21 01:55 Blood Culture - Preliminary Blood No Growth after 24 hours 08/31/21 01:40 Blood Culture - Preliminary Blood No Growth after 24 hours
[2021-09-01] MEDS: ACETAMINOPHEN TAB 325 MG TAB PO PRN ×2 (16:16→22:48)
[2021-09-01 17:11] LABS: INR 1.1 (<1.2); Partial Thromboplastin Time 29.6 sec (22.0-30.0); Prothrombin Time 11.4 sec (9.0-12.0)
[2021-09-02 00:44] LABS: INR 1.2 (<1.2); Partial Thromboplastin Time 34.5 sec (22.0-30.0); Prothrombin Time 12.7 sec (9.0-12.0)
[2021-09-02] MEDS: ALTEPLASE 10 MG in SODIUM CHLORIDE 0.9% 90 ML IV ONE ×3 (05:22→22:22)
[2021-09-02] MEDS: SODIUM CHLORIDE 0.9% 1,000 ML IV SCH ×3 (07:29→13:14)
[2021-09-02] MEDS ORDERED: LIDOCAINE 1% INJ 10MG/ML (20 ML MDV) ONE (08:56)
[2021-09-02] MEDS ORDERED: fentaNYL (PF) 50 MCG/ML 2 ML AMP ONE (08:57)
[2021-09-02] MEDS ORDERED: MIDAZOLAM 2 MG/2 ML VIAL IV ONE (09:06)
[2021-09-02] MEDS ORDERED: IV FLUID CONTINUATION 800 ML IV ONE (09:07)
[2021-09-02] MEDS: MIDAZOLAM 2 MG/2 ML VIAL IV ONE (09:27)
[2021-09-02] MEDS: fentaNYL (PF) 50 MCG/ML 2 ML AMP IV ONE ×2 (09:27→09:41)
[2021-09-02] MEDS ORDERED: IOPAMIDOL-250 50ML BTL IV ONE (10:10)
--- NOTE | 2021-09-02 10:23 | P.OP ---
Date of Procedure: 09/02/21 Preoperative Diagnosis: Right iliac vein thrombotic occlusion, currently undergoing TPA thrombolytic lysis Postoperative Diagnosis: Same plus right common iliac vein stenosis. Residual thrombotic burden. Procedure(s) Performed: #1: Right iliac venogram via existing catheter. #2: Balloon venoplasty right common and external iliac segments. #3: Percutaneous thrombectomy utilizing penumbra 6. Implants: None. Anesthesia: MAC (2 mg of Versed and 100 g of fentanyl) Surgeon: Shahzad Troncoso Estimated Blood Loss (ml): 250 Pathology: none sent Condition: stable Disposition: no change Indications for Procedure: Patient is a 26-year-old male who presented with severe swelling of the right lower extremity, relatively acute in onset. He was found to be suffering from right common and external iliac thrombotic occlusion. Yesterday evening venogram with placement of a catheter through which TPA was infused for approximately 24 hours. He is now brought back for follow-up of venous and possible additional intervention Operative Findings: Patient demonstrated evidence of chronic venous occlusion with collaterals from the right to the left iliac system. We were unable to remove all of the thrombus although a vast majority of thrombus was thrombolyzed/removed. Description of Procedure: Patient was brought to the catheter builder and placed in the prone position. The right popliteal area was sterilely prepped and draped in usual manner. Through the pre-existing infusion catheter a venogram was performed. This demonstrated patency of the common and external iliac system with residual thrombus/stenosis. A guidewire was advanced through the infusion catheter which was then removed. A 12 mm balloon dilation catheter was then utilized to balloon dilate the entire common and external iliac segments. Repeat venogram demonstrated significant improvement with residual thrombus utilizing a penumbra catheter additional thrombus was removed however in spite of repeated attempts at removal not all the thrombus could be relieved/removed. As such a infusion catheter was placed back into the iliac system with plan for continuation of TPA thrombo-lysis and reimaging tomorrow with anticipation of intravascular ultrasound evaluation and possible iliac venous stenting. Patient tolerated the procedure well. Total conscious sedation time 69 minutes. Total fluoroscopy time 11.7 minutes. Total contrast line 40 ML's of Isovue 250.
[2021-09-02 11:05] LABS: Basophils % (A) 0 %; Eosinophils # (A) 0.2 k/uL (0-0.7); Eosinophils % (A) 3 %; HGB 13.6 gm/dL (13.0-17.5); Lymphocytes # (A) 1.2 k/uL (1.0-4.8); Lymphocytes % (A) 22 %; MCH 30.3 pg (25.0-35.0); MCHC 32.4 g/dL (31.0-37.0); MCV 93.4 fL (80.0-100.0); Mean Platelet Volume 9.1; Monocytes # (A) 0.4 k/uL (0-1.0); Monocytes % (A) 7 %; Neutrophils # (A) 3.6 k/uL (1.3-7.7); Neutrophils % (A) 66 %; Platelet Count 138 k/uL (150-450); RBC 4.49 m/uL (4.30-5.90); WBC 5.5 k/uL (3.8-10.6)
[2021-09-02 11:16] LABS: African American GFR (CKD) >90 (>60 ml/min/1.73 sqM); Anion Gap 8 mmol/L; Blood Urea Nitrogen 9 mg/dL (9-20); Calcium 8.4 mg/dL (8.4-10.2); Carbon Dioxide 26 mmol/L (22-30); Chloride 105 mmol/L (98-107); Glucose 104 mg/dL (74-99); Non-African American GFR(CKD) >90 (>60 ml/min/1.73 sqM); Potassium 4.3 mmol/L (3.5-5.1); Sodium 139 mmol/L (137-145)
[2021-09-02 11:17] LABS: INR 1.3 (<1.2); Partial Thromboplastin Time 37.1 sec (22.0-30.0); Prothrombin Time 13.5 sec (9.0-12.0)
--- NOTE | 2021-09-02 11:24 | P.PN ---
Subjective Progress Note Date: 09/02/21 Principal diagnosis: DVT. Pulmonary consult dated 09/01/2021. A 26-year-old otherwise healthy male, who presents to the emergency department, with pain and swelling as well as discoloration in the right thigh and leg. He states that he noticed some pain in the difficulty or discomfort in his right groin area. He got worse, so he came to the emergency room to be evaluated. He apparently was found to have a right iliac vein thrombosis. The patient had a right popliteal sheath placed by vascular surgery, and the patient was given TPA. Currently, he's on room air. He is getting saline at 10 mL an hour, heparin via weightbase protocol, and TPA 1 mg an hour. The patient had an ultrasound-guided cannulation of the right popliteal vein, right iliac venogram, and TPA thrombolytic lysis. The patient is resting comfortably in the intensive care unit, room 256. He does not smoke cigarettes. He does vape. He doesn't have a primary care physician. He doesn't take any medications at home. He is very active. White count 7.3, within normal hemoglobin hematocrit and platelet count. The patient's PTT when last checked was 49.1. Sodium 137, potassium 3.9, chlorides 106, CO2 22, BUN 17, and creatinine 0.84. Progress note dated 09/02/2021. The patient is again seen in room 256. He was seen yesterday in consultation. The patient went back to the vascular laboratory today, and had a right iliac venogram, the existing catheter, balloon venoplasty of the right common and external iliac segments, and percutaneous thrombectomy. The patient will be transferred back to the intensive care unit. The patient's on room air. The patient's getting saline at 10 mL an hour, heparin at 500 units an hour, and TPA 1 mg an hour. Laboratory data includes a white count 5.5, he will 13.6, hematocrit 42, and platelet count 130,000. Sodium 139, potassium 4.3, chlorides 105, CO2 26, BUN 9, creatinine 0.97. Objective - Vital Signs Vital signs: Vital Signs Temp 98.2 F 09/02/21 08:00 Pulse 66 09/02/21 11:00 Resp 14 09/02/21 11:00 BP 122/75 09/02/21 11:00 Pulse Ox 96 09/02/21 11:00 Intake & Output 09/01/21 09/02/21 09/02/21 18:59 06:59 18:59 Intake Total 1980 535.833 410 Output Total 8034 598 1290 Balance 180 -64.167 -690 Weight 92.9 kg Intake: IV 480 440 410 Alteplase 10 mg In Sodium 70 110 40 Chloride 0.9% 90 ml @ 1 MG/HR 10 mls/hr IV .Q10H [facility] Rx#:[id number] Heparin Sod,Pork in 0.45% 35 55 20 NaCl 25,000 unit In 0.45 % NaCl 1 250ml.bag @ 5 mls/hr IV .Q24H [facility] Rx#: [id number] Sodium Chloride 0.9% 1, 175 275 100 000 ml @ 25 mls/hr IV . Q24H [facility] Rx#:[id number] Intake, IV Titration 95.833 Amount Alteplase 10 mg In Sodium 95.833 Chloride 0.9% 90 ml @ 1 MG/HR 10 mls/hr IV .Q10H [facility] Rx#:[id number] Oral 1500 Output: Urine 5324 304 3808 Other: Voiding Method Urinal Urinal Urinal - Exam No acute distress, oriented 3. HEENT examination is grossly unremarkable. Neck supple. Full range of motion. No adenopathy thyromegaly or neck vein distention. Cardiovascular examination reveals regular rhythm rate. S1-S2 normal. No S3 or S4. No discernible murmur noted. Heart rate 66 bpm. Lungs reveal clear breath sounds. Breath sounds are equal bilaterally. No adventitious lung sounds including wheezes rhonchi or crackles. Abdomen soft bowel sounds are heard. No masses or tenderness. Extremities reveal a normal left lower extremity, but a swollen right thigh, and leg. Skin is without rash or lesion. Neurologic examination is brief but nonfocal. - Labs CBC & Chem 7: 09/02/21 10:15 09/02/21 10:15 Labs: Abnormal Lab Results - Last 24 Hours (Table) 09/02/21 09/02/21 09/02/21 Range/Units 00:25 10:15 10:15 Plt Count 138 L (150-450) k/uL PT 12.7 H (9.0-12.0) sec INR 1.2 H (<1.2) APTT 34.5 H (22.0-30.0) sec Fibrinogen 173 L (200-500) mg/dL Glucose 104 H (74-99) mg/dL Microbiology - Last 24 Hours (Table) 08/31/21 01:55 Blood Culture - Preliminary Blood No Growth after 48 hours 08/31/21 01:40 Blood Culture - Preliminary Blood No Growth after 48 hours Assessment and Plan Assessment: Right iliac vein thrombosis, status post ultrasound-guided insertion of a right popliteal sheath, right iliac venogram, and TPA thrombolytic lysis, postop day #1. Postop day #0, status post right iliac venogram, balloon venoplasty right common and external iliac segments, and percutaneous thrombectomy. No other major medical problems or issues. Plan: Plan dated 09/01/2021. Patient's resting comfortably in the intensive care unit. We will continue to follow the patient and make recommendations where appropriate. Hemodynamically, the patient is stable. His respiratory status is stable. He remains on IV heparin, and TPA at 1 mg an hour. No additional recommendations are made. We will continue to follow the patient and make recommendations where appropriate. Plan dated 09/02/2021. The patient's resting comfortably. We will continue to follow. Labs, x-rays, and medications are all reviewed. The patient did go back to the vascular laboratory today. The patient underwent a right iliac venogram, balloon venoplasty of the right common and external iliac segments, and percutaneous thrombectomy. Time with Patient: Less than 30
--- NOTE | 2021-09-02 12:28 | P.PN ---
Subjective Progress Note Date: 09/02/21 26-year-old male came in with complaints of right lower extremity swelling and tingling numbness in change in color. Patient denied any trauma. Patient does have family history of DVT in multiple family members. Although there is no DVT that was evident in the right lower DVT but showed significantly slowed venous flow in the right leg. Because of this is a concern that patient may have iliac thrombus because of which patient will undergo CT of the abdomen with contrast. Patient denied any significant unintentional weight loss. Patient doesn't have any fever chills patient denied any chest pain at this time. Denied any shortness of breath. Patient is having some pain in the right lower extremity and predominantly in the right groin area. 09/01/2021 Patient had ECOS procedure today. Patient is alert and TPA admitted to ICU. Patient is also found to be positive for COVID-19 which may have contributed to his DVT. 09/02/2021 Patient is seen in follow-up today continues to be in the ICU being closely monitored. Patient continues with right iliac vein thrombotic occlusion and und erwent TPA thrombolytic lysis and continues with the sheath with vascular surgery Dr. Troncoso following closely. Patient being brought back today for possible re-intervention as they were unable to remove all of the thrombus is patient demonstrates evidence of a chronic venous occlusion with collaterals from the right to the left iliac system and TPA is being continued through the sheath with follow-up imaging in the a.m. Patient will continue on IV heparin infusion once transitioned from TPA per vascular surgery and will await surgical report. She denies chest pain or shortness of breath. Patient is afebrile. Constitutional: Denied any fatigue denied any fever. Cardio vascular: denied any chest pain, palpitations Gastrointestinal denied any nausea vomiting Pulmonary: Denied any shortness of breath cough Neurologic denied any new focal deficits All inpatient medications were reviewed and appropriate changes in these medications as dictated in the interval history and assessment and plan. Active Medications Acetaminophen (Acetaminophen Tab 325 Mg Tab) 650 mg PO Q6HR PRN PRN Reason: Fever > 100.5 Last Admin: 09/01/21 22:48 Dose: 650 mg Documented by: Hydrocodone Bitart/Acetaminophen (Hydrocodone/Apap 7.5-325mg 1 Each Tab) 1 each PO Q6HR PRN PRN Reason: Pain Last Admin: 09/01/21 06:13 Dose: 1 each Documented by: Heparin Sodium (Porcine) (Heparin Sodium 1,000 Un/Ml (10ml Vl)) 0 unit IV PER PROTOCOL PRN; Protocol PRN Reason: Low PTT Alteplase, Recombinant 10 mg/ (Sodium Chloride) 100 mls @ 10 mls/hr IV .Q10H [facility]; Protocol Last Admin: 09/02/21 05:22 Dose: 1 mg/hr, 10 mls/hr Documented by: Heparin Sodium/Sodium Chloride (25,000 unit/ Sodium Chloride) 250 mls @ 5 mls/hr IV .Q24H [facility] Sodium Chloride (Saline 0.9%) 1,000 mls @ 25 mls/hr IV .Q24H [facility] Last Admin: 09/01/21 12:29 Dose: 25 mls/hr Documented by: Morphine Sulfate (Morphine Sulfate 4 Mg/Ml Syringe) 4 mg IV Q4HR PRN PRN Reason: Severe Pain Last Admin: 09/01/21 21:24 Dose: 4 mg Documented by: Naloxone HCl (Naloxone 0.4 Mg/Ml 1 Ml Vial) 0.2 mg IV Q2M PRN PRN Reason: Opioid Reversal Ondansetron HCl (Ondansetron 4 Mg/2 Ml Vial) 4 mg IVP Q8HR PRN PRN Reason: Nausea And Vomiting PHYSICAL EXAMINATION: GENERAL: The patient is alert and oriented x3, not in any acute distress. Well developed, well nourished. HEENT: Pupils are round and equally reacting to light. EOMI. No scleral icterus. No conjunctival pallor. Normocephalic, atraumatic. No pharyngeal erythema. No thyromegaly. CARDIOVASCULAR: S1 and S2 present. No murmurs, rubs, or gallops. PULMONARY: Chest is clear to auscultation, no wheezing or crackles. ABDOMEN: Soft, nontender, nondistended, normoactive bowel sounds. No palpable organomegaly. MUSCULOSKELETAL: As mentioned in HPI EXTREMITIES: No cyanosis, clubbing, edema of the right lower extremity NEUROLOGICAL: Gross neurological examination did not reveal any focal deficits. SKIN: No rashes. Assessment: -Extensive DVT of the right common and external iliac patient is presently on TPA and continues with the sheath as patient was brought back to the [facility] for intervention to attempt to remove the thrombus although unsuccessful and will continue TPA per vascular surgery. Patient will continue in the ICU and c lose monitoring and follow-up imaging in the morning. Patient may have a hypercoagulable state patient does have family history hypercoagulable workup as an outpatient -Recent COVID-19 infection: Patient is asymptomatic. -Nicotine use: Counseling was provided -Full code Plan: Recommend continue with ICU monitoring and TPA infusing and continued sheath of the right lower extremity with vascular surgery following closely and plans are for follow-up imaging in the a.m. as patient was brought back to the [facility] today and attempt to remove remaining clot. Please refer to vascular surgery progress note for further documentation. Patient will transition to heparin once off TPA and will discuss with vascular surgery about further anticoagulation needs in the outpatient setting. Recommend repeat labs and will continue to monitor closely. The impression and plan of care has been dictated by Jessica Arndt, Nurse Practitioner as directed. Dr. Kathy MD I have performed a history and examination and MDM of this patient, discussed the same with the dictator, and agree with the dictator's assessment and plan as written ,documented as a scribe. Based on total visit time, I have performed more than 50% of the visit. Objective - Vital Signs Vital signs: Vital Signs Temp 98.2 F 09/02/21 08:00 Pulse 81 09/02/21 08:00 Resp 18 09/02/21 08:00 BP 120/63 09/02/21 08:00 Pulse Ox 95 09/02/21 08:00 Intake & Output 09/01/21 09/02/21 09/02/21 18:59 06:59 18:59 Intake Total 1980 535.833 120 Output Total 6104 882 1287 Balance 180 -64.167 -980 Weight 92.9 kg Intake: IV 480 440 120 Alteplase 10 mg In Sodium 70 110 30 Chloride 0.9% 90 ml @ 1 MG/HR 10 mls/hr IV .Q10H [facility] Rx#:[id number] Heparin Sod,Pork in 0.45% 35 55 15 NaCl 25,000 unit In 0.45 % NaCl 1 250ml.bag @ 5 mls/hr IV .Q24H [facility] Rx#: [id number] Sodium Chloride 0.9% 1, 175 275 75 000 ml @ 25 mls/hr IV . Q24H [facility] Rx#:[id number] Intake, IV Titration 95.833 Amount Alteplase 10 mg In Sodium 95.833 Chloride 0.9% 90 ml @ 1 MG/HR 10 mls/hr IV .Q10H [facility] Rx#:[id number] Oral 1500 Output: Urine 5028 947 6971 Other: Voiding Method Urinal Urinal Urinal - Labs CBC & Chem 7: 09/02/21 10:15 09/02/21 10:15 Labs: Abnormal Lab Results - Last 24 Hours (Table) 09/01/21 09/02/21 Range/Units 08:44 00:25 PT 12.7 H (9.0-12.0) sec INR 1.2 H (<1.2) APTT 49.1 H 34.5 H (22.0-30.0) sec Fibrinogen 173 L (200-500) mg/dL Microbiology - Last 24 Hours (Table) 08/31/21 01:55 Blood Culture - Preliminary Blood No Growth after 48 hours 08/31/21 01:40 Blood Culture - Preliminary Blood No Growth after 48 hours
[2021-09-02] MEDS: HEPARIN SOD,PORK IN 0.45% NACL 25,000 UNIT in 0.45% NACL 1 250ML.BAG IV SCH ×2 (13:14→19:49)
--- NOTE | 2021-09-02 17:24 | PN ---
PROGRESS NOTE DATE OF SERVICE: September 02, 2021. CHIEF COMPLAINT: Swollen leg. The patient is seen today as a followup. He continues to have some swollen legs, but otherwise he feels well. No shortness of breath. No chest pain. No melena, hematochezia, hematuria or hemoptysis. CURRENT MEDICATION: Reviewed in his electronic medical record. PHYSICAL EXAMINATION: Alert and oriented times 3. No acute distress. Vital signs: Temperature 98.8, afebrile, pulse 83, regular, respiration 15, blood pressure 124/66, pulse ox 97 percent on room air. HEENT: Normocephalic, atraumatic. Neck: Supple. Chest: Equal expansion bilaterally. Lungs are clear. Heart is regular. Abdomen: Soft. No tenderness or organomegaly. Extremities reveal edema in the right lower extremity. LABORATORY DATA: From today, WBC of 5.5, hemoglobin 13.6, hematocrit 42.0, platelets 138. His BMP is within normal limits. IMPRESSION: Right iliac venous thrombosis structure status post ultrasound-guided insertion of right popliteal sheath and right iliac venogram and tPA thrombolytic lysis. His thrombotic event is unprovoked. RECOMMENDATION: 1. Continue anticoagulation. 2. The patient likely will require indefinite anticoagulation. 3. He developed mild thrombocytopenia as well. The CBC will be monitored closely. 4. He may continue with IV heparin for now. 5. Hypercoagulability workup will be performed in the outpatient setting. 6. The above was discussed with the patient and I answered all his questions. MMODL / PARMINDERN: [id number] /
[2021-09-02 19:11] LABS: INR 1.3 (<1.2); Partial Thromboplastin Time 29.9 sec (22.0-30.0); Prothrombin Time 13.2 sec (9.0-12.0)
[2021-09-02] MEDS: MORPHINE SULFATE 4 MG/ML SYRINGE IV PRN (22:31)
[2021-09-03 00:34] LABS: INR 1.2 (<1.2); Prothrombin Time 12.6 sec (9.0-12.0)
[2021-09-03 07:13] LABS: Basophils # (A) 0.1 k/uL (0-0.2); Basophils % (A) 1 %; Eosinophils # (A) 0.4 k/uL (0-0.7); Eosinophils % (A) 6 %; HCT 40.6 % (39.0-53.0); HGB 13.3 gm/dL (13.0-17.5); Lymphocytes # (A) 2.6 k/uL (1.0-4.8); Lymphocytes % (A) 39 %; MCHC 32.9 g/dL (31.0-37.0); MCV 94.3 fL (80.0-100.0); Mean Platelet Volume 8.4; Monocytes # (A) 0.4 k/uL (0-1.0); Monocytes % (A) 6 %; Neutrophils # (A) 3.1 k/uL (1.3-7.7); Neutrophils % (A) 46 %; Platelet Count 121 k/uL (150-450); RDW 12.4 % (11.5-15.5); WBC 6.7 k/uL (3.8-10.6)
[2021-09-03 07:23] LABS: INR 1.2 (<1.2); Partial Thromboplastin Time 27.8 sec (22.0-30.0); Prothrombin Time 12.5 sec (9.0-12.0)
[2021-09-03 07:25] LABS: ALT 9 U/L (4-49); AST 17 U/L (17-59); African American GFR (CKD) >90 (>60 ml/min/1.73 sqM); Albumin 3.3 g/dL (3.5-5.0); Alkaline Phosphatase 49 U/L (38-126); Anion Gap 4 mmol/L; Blood Urea Nitrogen 9 mg/dL (9-20); Calcium 8.3 mg/dL (8.4-10.2); Carbon Dioxide 26 mmol/L (22-30); Chloride 108 mmol/L (98-107); Glucose 107 mg/dL (74-99); Non-African American GFR(CKD) >90 (>60 ml/min/1.73 sqM); Potassium 4.1 mmol/L (3.5-5.1); Sodium 138 mmol/L (137-145); Total Bilirubin 0.4 mg/dL (0.2-1.3); Total Protein 6.5 g/dL (6.3-8.2)
--- NOTE | 2021-09-03 08:40 | IR ---
Fluoroscopy HISTORY: Deep venous thrombosis 11.7 minutes fluoroscopy time supplied to the referring clinician. 680 intraoperative C-arm images d ocument the procedure. See dictated report from vascular surgery.
[2021-09-03] MEDS: ALTEPLASE 10 MG in SODIUM CHLORIDE 0.9% 90 ML IV ONE (08:50)
[2021-09-03] MEDS: MORPHINE SULFATE 4 MG/ML SYRINGE IV PRN ×3 (08:50→21:47)
[2021-09-03] MEDS: HEPARIN SOD,PORK IN 0.45% NACL 25,000 UNIT in 0.45% NACL 1 250ML.BAG IV SCH (09:52)
[2021-09-03] MEDS ORDERED: LIDOCAINE 1% INJ 10MG/ML (20 ML MDV) ONE (11:05)
[2021-09-03] MEDS ORDERED: fentaNYL (PF) 50 MCG/ML 2 ML AMP ONE (11:05)
--- NOTE | 2021-09-03 11:35 | P.PN ---
Subjective 26-year-old male came in with complaints of right lower extremity swelling and tingling numbness in change in color. Patient denied any trauma. Patient does have family history of DVT in multiple family members. Although there is no DVT that was evident in the right lower DVT but showed significantly slowed venous flow in the right leg. Because of this is a concern that patient may have iliac thrombus because of which patient will undergo CT of the abdomen with contrast. Patient denied any significant unintentional weight loss. Patient doesn't have any fever chills patient denied any chest pain at this time. Denied any shortness of breath. Patient is having some pain in the right lower extremity and predominantly in the right groin area. 09/01/2021 Patient had ECOS procedure today. Patient is alert and TPA admitted to ICU. P rolando is also found to be positive for COVID-19 which may have contributed to his DVT. 09/02/2021 Patient is seen in follow-up today continues to be in the ICU being closely monitored. Patient continues with right iliac vein thrombotic occlusion and underwent TPA thrombolytic lysis and continues with the sheath with vascular surgery Dr. Troncoso following closely. Patient being brought back today for possible re-intervention as they were unable to remove all of the thrombus is patient demonstrates evidence of a chronic venous occlusion with collaterals from the right to the left iliac system and TPA is being continued through the sheath with follow-up imaging in the a.m. Patient will continue on IV heparin infusion once transitioned from TPA per vascular surgery and will await surgical report. She denies chest pain or shortness of breath. Patient is afebrile. 09/03/2021, resuming the care of the patient This is a pleasant 26 years old male who presents initially with right thigh pain found to have acute thrombosis of the right external and common iliac veins with no evidence of thrombosis in the distal veins. Patient was started on heparin drip and underwent balloon venoplasty and thrombectomy by vascular surgery team. I discussed the case with surgery team today and they plan to take the patient to all are again today for possible stent placement. Patient himself currently resting in bed in the ICU. He denies any chest pain or dyspnea. No leg pain. No other complaints. Patient says that his father also has clotting disease not on anticoagulation and his sister as well but she is taking a blood thinners. He is not sure about the diagnosis of her blood disease. He is hemodynamically stable. CBC, BMP and liver enzymes are unremarkable. INR is 1.2. Currently kept on heparin drip and normal saline. Objective - Vital Signs Vital signs: Vital Signs Temp 97.9 F 09/03/21 08:00 Pulse 56 L 09/03/21 09:00 Resp 12 09/03/21 09:00 BP 115/81 09/03/21 09:00 Pulse Ox 96 09/03/21 09:00 Intake & Output 09/02/21 09/03/21 09/03/21 18:59 06:59 18:59 Intake Total 2768.167 1371.833 220 Output Total 2700 2200 Balance 68.167 -828.167 220 Weight 98.8 kg Intake: IV 690 480 120 Alteplase 10 mg In Sodium 110 120 30 Chloride 0.9% 90 ml @ 1 MG/HR 10 mls/hr IV .Q10H [facility] Rx#:[id number] Heparin Sod,Pork in 0.45% 55 60 15 NaCl 25,000 unit In 0.45 % NaCl 1 250ml.bag @ 5 mls/hr IV .Q24H [facility] Rx#: [id number] Sodium Chloride 0.9% 1, 275 300 75 000 ml @ 25 mls/hr IV . Q24H [facility] Rx#:[id number] Intake, IV Titration 78.167 91.833 100 Amount Alteplase 10 mg In Sodium 78.167 91.833 100 Chloride 0.9% 90 ml @ 1 MG/HR 10 mls/hr IV .Q10H [facility] Rx#:[id number] Oral 2000 800 Output: Urine 2700 2200 Other: Voiding Method Urinal Urinal Urinal - Exam GENERAL: The patient is alert and oriented x3, not in any acute distress. Well developed, well nourished. HEENT: Pupils are round and equally reacting to light. EOMI. No scleral icterus. No conjunctival pallor. Normocephalic, atraumatic. No pharyngeal erythema. No thyromegaly. CARDIOVASCULAR: S1 and S2 present. No murmurs, rubs, or gallops. PULMONARY: Chest is clear to auscultation, no wheezing or crackles. ABDOMEN: Soft, nontender, nondistended, normoactive bowel sounds. No palpable organomegaly. MUSCULOSKELETAL: No joint swelling or deformity. EXTREMITIES: No cyanosis, clubbing, or pedal edema. NEUROLOGICAL: Gross neurological examination did not reveal any focal deficits. SKIN: No rashes. no petechiae. - Labs CBC & Chem 7: 09/03/21 06:57 09/03/21 06:57 Labs: Abnormal Lab Results - Last 24 Hours (Table) 09/02/21 09/02/21 09/02/21 Range/Units 10:15 10:15 10:15 Plt Count 138 L (150-450) k/uL PT 13.5 H (9.0-12.0) sec INR 1.3 H (<1.2) APTT 37.1 H (22.0-30.0) sec Fibrinogen 98 L (200-500) mg/dL Chloride (98-107) mmol/L Glucose 104 H (74-99) mg/dL Calcium (8.4-10.2) mg/dL Albumin (3.5-5.0) g/dL 09/02/21 09/02/21 09/03/21 Range/Units 18:35 23:46 06:57 Plt Count (150-450) k/uL PT 13.2 H 12.6 H 12.5 H (9.0-12.0) sec INR 1.3 H 1.2 H 1.2 H (<1.2) APTT (22.0-30.0) sec Fibrinogen (200-500) mg/dL Chloride (98-107) mmol/L Glucose (74-99) mg/dL Calcium (8.4-10.2) mg/dL Albumin (3.5-5.0) g/dL 09/03/21 09/03/21 Range/Units 06:57 06:57 Plt Count 121 L (150-450) k/uL PT (9.0-12.0) sec INR (<1.2) APTT (22.0-30.0) sec Fibrinogen (200-500) mg/dL Chloride 108 H (98-107) mmol/L Glucose 107 H (74-99) mg/dL Calcium 8.3 L (8.4-10.2) mg/dL Albumin 3.3 L (3.5-5.0) g/dL Microbiology - Last 24 Hours (Table) 08/31/21 01:55 Blood Culture - Preliminary Blood No Growth after 72 hours 08/31/21 01:40 Blood Culture - Preliminary Blood No Growth after 72 hours Assessment and Plan Assessment: -Extensive DVT of the right common and external iliac . Status post balloon venoplasty and thrombectomy. Patient probably will need stent placement today 09/03 per vascular surgery team. Continue with heparin drip. 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 -Recent COVID-19 infection: Patient is asymptomatic. -Nicotine use: Counseling was provided GI prophylaxis: Pepcid
[2021-09-03] MEDS ORDERED: fentaNYL (PF) 50 MCG/ML 2 ML AMP IV ONE ×2 (11:40)
[2021-09-03] MEDS ORDERED: MIDAZOLAM 2 MG/2 ML VIAL IV ONE (11:40)
[2021-09-03] MEDS ORDERED: LIDOCAINE 1% INJ 10MG/ML (20 ML MDV) SQ ONE (11:43)
[2021-09-03] MEDS: fentaNYL (PF) 50 MCG/ML 2 ML AMP IV ONE (11:46)
[2021-09-03] MEDS ORDERED: IV FLUID CONTINUATION 500 ML IV ONE (11:49)
[2021-09-03] MEDS ORDERED: HEPARIN SODIUM 1,000 UN/ML (10ML VL) ONE (12:00)
[2021-09-03] MEDS ORDERED: HEPARIN SODIUM 1,000 UN/ML (10ML VL) IV ONE (12:03)
[2021-09-03] MEDS: MIDAZOLAM 2 MG/2 ML VIAL IV ONE ×2 (12:19→12:25)
[2021-09-03 12:49] LABS: APTT 101 Sec(s) (<43); APTT 1:1 Mix 64 Sec(s) (<43); DRVVT 1:1 Mix 40 Sec(s) (<44); Dilute Russell Viper Venom 47 Sec(s) (<44); Hexagonal Phase Neutralization Negative (Negative)
--- NOTE | 2021-09-03 13:17 | IR ---
EXAMINATION TYPE: IR mech remov intraluminal mat DATE OF EXAM: 09/03/2021 CLINICAL HISTORY: Right-sided iliac DVT TECHNIQUE: Fluoroscopy. COMPARISON: None. FINDINGS: Fluoroscopic guidance was provided during catheter thrombolysis procedure performed by Dr. Troncoso. A total of 3 minutes 18 seconds of fluoroscopic time was utilized during the procedure a nd 1611 spot images are acquired. IMPRESSION: As Above.
--- NOTE | 2021-09-03 14:05 | P.PN ---
Subjective Progress Note Date: 09/03/21 on today's evaluation of 09/03/2021, I'm seeing this patient for a follow-up. The patient is doing well. No respiratory difficulties. The patient has a acute thrombosis of the right common iliac vein extending to the IVC and the patient has catheter directed thrombolytic therapy. Subsequently, the patient was taken again to the vascular lab and the patient underwent a balloon angioplasty and another intervention to be done today with the patient will be taken to the vascular left for possible stent insertion. The right lower extremity seems to be nonswollen and there is adequate circulation this point in time with excellent coloration. The patient shows no signs of any bleeding. The patient remains hemodynamically stable. The patient has positive history of hypercoagulability in the family and the patient will likely need long-term anticoagulation. The patient is still on IV heparin for now. Objective - Vital Signs Vital signs: Vital Signs Temp 97.9 F 09/03/21 08:00 Pulse 56 L 09/03/21 13:00 Resp 11 L 09/03/21 13:00 BP 114/66 09/03/21 13:00 Pulse Ox 95 09/03/21 13:00 Intake & Output 09/02/21 09/03/21 09/03/21 18:59 06:59 18:59 Intake Total 2768.167 1371.833 885 Output Total 2700 2200 700 Balance 68.167 -828.167 185 Weight 98.8 kg Intake: IV 690 480 485 Alteplase 10 mg In Sodium 110 120 40 Chloride 0.9% 90 ml @ 1 MG/HR 10 mls/hr IV .Q10H [facility] Rx#:[id number] Heparin Sod,Pork in 0.45% 55 60 20 NaCl 25,000 unit In 0.45 % NaCl 1 250ml.bag @ 5 mls/hr IV .Q24H [facility] Rx#: [id number] Sodium Chloride 0.9% 1, 275 300 125 000 ml @ 25 mls/hr IV . Q24H [facility] Rx#:[id number] Intake, IV Titration 78.167 91.833 100 Amount Alteplase 10 mg In Sodium 78.167 91.833 100 Chloride 0.9% 90 ml @ 1 MG/HR 10 mls/hr IV .Q10H [facility] Rx#:[id number] Oral 2000 800 300 Output: Urine 2700 2200 700 Other: Voiding Method Urinal Urinal Urinal - Exam No acute distress, oriented 3.the patient is currently on room air oxygen. The patient is calm and comfortable. No signs of any respiratory distress. Head exam was generally normal. There was no scleral icterus or corneal arcus. Mucous membranes were moist. HEENT examination is grossly unremarkable. Neck supple. Full range of motion. No adenopathy thyromegaly or neck vein distention. Cardiovascular examination reveals regular rhythm rate. S1-S2 normal. No S3 or S4. No discernible murmur noted. Lungs reveal clear breath sounds. Breath sounds are equal bilaterally. No adventitious lung sounds including wheezes rhonchi or crackles. Abdomen soft bowel sounds are heard. No masses or tenderness. Extremities reveal a normal left lower extremity, but a swollen right thigh, and leg. Skin is without rash or lesion. Neurologic examination is brief but nonfocal. - Labs CBC & Chem 7: 09/03/21 06:57 09/03/21 06:57 Labs: Abnormal Lab Results - Last 24 Hours (Table) 08/31/21 09/02/21 09/02/21 Range/Units 17:33 18:35 23:46 Plt Count (150-450) k/uL PT 13.2 H 12.6 H (9.0-12.0) sec INR 1.3 H 1.2 H (<1.2) Lupus Anticoag aPTT 101 H (<43) Sec(s) Lupus Anticoag PTT Mix 64 H (<43) Sec(s) Dil Gerber Viper Venom 47 H (<44) Sec(s) Chloride (98-107) mmol/L Glucose (74-99) mg/dL Calcium (8.4-10.2) mg/dL Albumin (3.5-5.0) g/dL 09/03/21 09/03/21 09/03/21 Range/Units 06:57 06:57 06:57 Plt Count 121 L (150-450) k/uL PT 12.5 H (9.0-12.0) sec INR 1.2 H (<1.2) Lupus Anticoag aPTT (<43) Sec(s) Lupus Anticoag PTT Mix (<43) Sec(s) Dil Gerber Viper Venom (<44) Sec(s) Chloride 108 H (98-107) mmol/L Glucose 107 H (74-99) mg/dL Calcium 8.3 L (8.4-10.2) mg/dL Albumin 3.3 L (3.5-5.0) g/dL Microbiology - Last 24 Hours (Table) 08/31/21 01:55 Blood Culture - Preliminary Blood No Growth after 72 hours 08/31/21 01:40 Blood Culture - Preliminary Blood No Growth after 72 hours Assessment and Plan Plan: 1 Right iliac vein thrombosis, status post ultrasound-guided insertion of a right popliteal sheath, right iliac venogram, and TPA thrombolytic lysis, postop day #2. Note that subsequent to that, the patient was taken to the vascular lab and the patient underwent a right iliac venogram, balloon venoplasty right common and external iliac segments, and percutaneous thrombectomy. 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 Clinically the patient is doing well. Right lower extremity is nonswollen and there is normal discoloration of the skin. No pain in the right lower extremity. Based on all this, recommending to be switched this patient to oral anticoagulation with Xarelto once the vascular surgical interventions are completed. This will be a long-term anticoagulation and the patient will need an outpatient hypercoagulable state evaluation.
[2021-09-03] MEDS: SODIUM CHLORIDE 0.9% 1,000 ML IV SCH (15:41)
[2021-09-03] MEDS: RIVAROXABAN 15 MG TAB PO SCH (17:47)
[2021-09-03] MEDS ORDERED: bisacodyL 5 MG TABLET.DR PO PRN (17:49)
[2021-09-03] MEDS ORDERED: FAMOTIDINE 20 MG/2 ML VIAL IV SCH (21:00)
[2021-09-04] MEDS ORDERED: TETRAHYDROZOLINE 0.05% OPHTH DROPS 15 ML BTL BOTH EYES PRN (00:32)
[2021-09-04] MEDS: MORPHINE SULFATE 4 MG/ML SYRINGE IV PRN (03:11)
[2021-09-04 08:44] LABS: HCT 39.2 % (39.0-53.0); HGB 12.9 gm/dL (13.0-17.5); Mean Platelet Volume 8.5; Platelet Count 148 k/uL (150-450); RBC 4.17 m/uL (4.30-5.90); RDW 12.4 % (11.5-15.5); WBC 7.4 k/uL (3.8-10.6)
--- NOTE | 2021-09-04 09:04 | P.OP ---
Date of Procedure: 09/03/21 Preoperative Diagnosis: Right iliac Deep venous thrombosis, currently undergoing and status post attempt at percutaneous thrombectomy utilizing the Penumbra Device. Postoperative Diagnosis: Same, plus complete resolution of acute thrombus with residual chronic thrombus. Procedure(s) Performed: 1. Venogram via existing catheter. 2. Intravascular ultrasound right external and common iliac vein segments. 3. Utilization of clot treaver Implants: None. Anesthesia: MAC (Utilizing Versed and Fentanyl), local Surgeon: Shahzad Troncoso Estimated Blood Loss (ml): 30 Urine output (ml): 0 Pathology: none sent Condition: stable Disposition: no change Indications for Procedure: Patient is a 26-year-old right leg edema and found occlusion of the right crombolysis as well as thrombectomy. Patient Is brought back today for repeat imaging and possible intervention. Description of Procedure: Patient was brought to the catheterization Laboratory and placed in the prone Position and the right popliteal space was sterilely prepped and draped in the usual manner. Via the existing infusion catheter Venogram was performed which demonstrated no evidence of residual acute thrombus. Subsequently intravascular of the external and common iliac vein segments which demo residual thrombus in the possibility of stenosis involving the common iliac vein. In anticipation of the need to place an intravascular and a desire to remove all residual thrombotic burden a clot treaver device was utilized to remove residual thrombotic burden from the iliac and femoral segments. Prior to this procedure the patient was systemically heparinized. Repeat intravascular Ultrasound now demonstrated Absence of residual clot and no evidence of iliac venous stenosis. With the above findings Noted all sheaths and wires and catheters were removed and pressure was held at the puncture site until ceased. The patient tolerated the procedure well and was returned to his room in satisfactory and stable condition. Total fluoroscopy time 3.3 minutes Total conscious sedation Time 40 minutes. Total contrast volume used: 20 ml's of Isovue 250.
[2021-09-04] MEDS: HYDROcodone/APAP 7.5-325MG 1 EACH TAB PO PRN (09:36)
[2021-09-04] MEDS: RIVAROXABAN 15 MG TAB PO SCH (09:36)
[2021-09-04 09:38] VITALS: TEMP 98.5
--- NOTE | 2021-09-04 12:32 | P.PN ---
Subjective Progress Note Date: 09/04/21 Principal diagnosis: DVT/PE s/p covid infection In f/u today pt is up ambulating in the halls, he has pain in the LLE, mild swelling, denies bleeding, SOB, chest pain. Objective - Vital Signs Vital signs: Vital Signs Temp 98.5 F 09/04/21 08:00 Pulse 60 09/04/21 09:00 Resp 13 09/04/21 09:00 BP 109/82 09/04/21 09:00 Pulse Ox 97 09/04/21 09:00 Intake & Output 09/03/21 09/04/21 09/04/21 18:59 06:59 18:59 Intake Total 1260 762 Output Total 1600 1600 0 Balance -340 -838 0 Weight 99.7 kg Intake: IV 610 0 Alteplase 10 mg In Sodium 40 Chloride 0.9% 90 ml @ 1 MG/HR 10 mls/hr IV .Q10H [facility] Rx#:[id number] Heparin Sod,Pork in 0.45% 20 NaCl 25,000 unit In 0.45 % NaCl 1 250ml.bag @ 5 mls/hr IV .Q24H [facility] Rx#: [id number] Sodium Chloride 0.9% 1, 250 0 000 ml @ 25 mls/hr IV . Q24H [facility] Rx#:[id number] Intake, IV Titration 100 Amount Alteplase 10 mg In Sodium 100 Chloride 0.9% 90 ml @ 1 MG/HR 10 mls/hr IV .Q10H [facility] Rx#:[id number] Oral 550 762 Output: Urine 1600 1600 0 Other: Voiding Method Urinal Urinal - Constitutional General appearance: Present: average body habitus, cooperative, no acute distress - EENT Eyes: Present: anicteric sclerae, EOMI ENT: Present: hearing grossly normal - Respiratory Details: resp even and unlabored - Integumentary Integumentary: Present: normal - Neurologic Neurologic: Present: CNII-XII intact - Musculoskeletal Musculoskeletal: Present: strength equal bilaterally - Psychiatric Psychiatric: Present: A&O x's 3, appropriate affect, intact judgment & insight - Labs CBC & Chem 7: 09/04/21 08:16 09/03/21 06:57 Labs: Abnormal Lab Results - Last 24 Hours (Table) 08/31/21 09/04/21 Range/Units 17:33 08:16 RBC 4.17 L (4.30-5.90) m/uL Hgb 12.9 L (13.0-17.5) gm/dL Plt Count 148 L (150-450) k/uL Lupus Anticoag aPTT 101 H (<43) Sec(s) Lupus Anticoag PTT Mix 64 H (<43) Sec(s) Dil Gerber Viper Venom 47 H (<44) Sec(s) Microbiology - Last 24 Hours (Table) 08/31/21 01:55 Blood Culture - Preliminary Blood No Growth after 96 hours 08/31/21 01:40 Blood Culture - Preliminary Blood No Growth after 96 hours Assessment and Plan (1) Deep vein thrombosis (DVT) of iliac vein of right lower extremity Narrative/Plan: RLE extensive DVT, small RLL PE seen on CT AP. Post covid infection. S/P Tpa, thrombolysis, thrombectomy. Pending completion of ab work up for anticoagulation recommendations- cardioloipin ab and lupus anticoagulant neg, pending beta 2 glycoprotein. Due to small PE, recommendation is for 6 mo anticoagulation. Family Hx of thrombosis-hypercoaguable work up recommended, will be completed outpt. Current Visit: Yes Status: Acute Priority: High Code(s): I82.421 - ACUTE EMBOLISM AND THROMBOSIS OF RIGHT ILIAC VEIN SNOMED Code(s): 495243216 (2) COVID-19 Current Visit: Yes Status: Acute Priority: High Code(s): U07.1 - COVID-19 SNOMED Code(s): 564032911 Plan: Doctor attests: I performed a history and physical examination of this patient, developed impression and plan of care, discussed with dictator. I agree with dictators note, documented as a scribe.
--- NOTE | 2021-09-04 12:34 | P.PN ---
Subjective Progress Note Date: 09/04/21 on today's evaluation of 09/03/2021, I'm seeing this patient for a follow-up. The patient is doing well. No respiratory difficulties. The patient has a acute thrombosis of the right common iliac vein extending to the IVC and the patient has catheter directed thrombolytic therapy. Subsequently, the patient was taken again to the vascular lab and the patient underwent a balloon angioplasty and another intervention to be done today with the patient will be taken to the vascular left for possible stent insertion. The right lower extremity seems to be nonswollen and there is adequate circulation this point in time with excellent coloration. The patient shows no signs of any bleeding. The patient remains hemodynamically stable. The patient has positive history of hypercoagulability in the family and the patient will likely need long-term anticoagulation. The patient is still on IV heparin for now. 09/04/2021, the patient is doing extremely well. No specific complaints. The catheter was removed and the patient is currently on anticoagulation with Xarelto. He is concerned about the possibility of bleeding in the future as the patient wants to drink alcohol and he wants to have further skin tattoos. In any rate, the patient is doing very well. He is hemodynamically stable. He is tolerating anticoagulation well and the patient does not have any shortness of breath. No cough sputum production chest tightness or wheezing. No major swelling in lower eczematous bilaterally. He is currently on Xarelto 15 mg by mouth twice a day. Objective - Vital Signs Vital signs: Vital Signs Temp 98.5 F 09/04/21 08:00 Pulse 60 09/04/21 09:00 Resp 13 09/04/21 09:00 BP 109/82 09/04/21 09:00 Pulse Ox 97 09/04/21 09:00 Intake & Output 09/03/21 09/04/21 09/04/21 18:59 06:59 18:59 Intake Total 1260 762 500 Output Total 1600 1600 0 Balance -340 -838 500 Weight 99.7 kg Intake: IV 610 0 Alteplase 10 mg In Sodium 40 Chloride 0.9% 90 ml @ 1 MG/HR 10 mls/hr IV .Q10H [facility] Rx#:[id number] Heparin Sod,Pork in 0.45% 20 NaCl 25,000 unit In 0.45 % NaCl 1 250ml.bag @ 5 mls/hr IV .Q24H [facility] Rx#: [id number] Sodium Chloride 0.9% 1, 250 0 000 ml @ 25 mls/hr IV . Q24H [facility] Rx#:[id number] Intake, IV Titration 100 Amount Alteplase 10 mg In Sodium 100 Chloride 0.9% 90 ml @ 1 MG/HR 10 mls/hr IV .Q10H [facility] Rx#:[id number] Oral 550 762 500 Output: Urine 1600 1600 0 Other: Voiding Method Urinal Urinal # Voids 1 - Exam No acute distress, oriented 3.the patient is currently on room air oxygen. The patient is calm and comfortable. No signs of any respiratory distress. Head exam was generally normal. There was no scleral icterus or corneal arcus. Mucous membranes were moist. HEENT examination is grossly unremarkable. Neck supple. Full range of motion. No adenopathy thyromegaly or neck vein distention. Cardiovascular examination reveals regular rhythm rate. S1-S2 normal. No S3 or S4. No discernible murmur noted. Lungs reveal clear breath sounds. Breath sounds are equal bilaterally. No adventitious lung sounds including wheezes rhonchi or crackles. Abdomen soft bowel sounds are heard. No masses or tenderness. Extremities reveal a normal left lower extremity, the swelling in the right lower oximetry is improved and the catheter sites has been clean. Skin is without rash or lesion. Neurologic examination is brief but nonfocal. - Labs CBC & Chem 7: 09/04/21 08:16 09/03/21 06:57 Labs: Abnormal Lab Results - Last 24 Hours (Table) 08/31/21 09/04/21 Range/Units 17:33 08:16 RBC 4.17 L (4.30-5.90) m/uL Hgb 12.9 L (13.0-17.5) gm/dL Plt Count 148 L (150-450) k/uL Lupus Anticoag aPTT 101 H (<43) Sec(s) Lupus Anticoag PTT Mix 64 H (<43) Sec(s) Dil Gerber Viper Venom 47 H (<44) Sec(s) Microbiology - Last 24 Hours (Table) 08/31/21 01:55 Blood Culture - Preliminary Blood No Growth after 96 hours 08/31/21 01:40 Blood Culture - Preliminary Blood No Growth after 96 hours Assessment and Plan Plan: 1 Right iliac vein thrombosis, status post ultrasound-guided insertion of a right popliteal sheath, right iliac venogram, and TPA thrombolytic lysis, postop day #3. Note that subsequent to that, the patient was taken to the vascular lab and the patient underwent a right iliac venogram, balloon venoplasty right common and external iliac segments, and percutaneous thrombectomy. The patient clinically is improved. The patient has no major swelling in the right lower extremity and the patient's catheter be removed and the patient is currently on anticoagulation with Xarelto. 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
--- NOTE | 2021-09-04 12:42 | P.DS ---
Providers Date of admission: 08/31/21 02:45 Attending physician: Cheri Flores Consults: 08/31/21 02:44 Consult Physician Urgent Consulting Provider: Shahzad Troncoso Consult Reason/Comments: DVT Do you want consulting provider notified?: Already Contacted 08/31/21 09:35 Consult Physician Routine Consulting Provider: Justin Arredondo Consult Reason/Comments: DVT, work up for possible clotting disorder Do you want consulting provider notified?: Yes 09/01/21 13:09 Consult Physician Routine Consulting Provider: George Zuniga Consult Reason/Comments: ICU Do you want consulting provider notified?: Already Contacted Primary care physician: Stated None Hospital Course: Patient given with the swelling of the right leg no DVT was evident on the ultrasound of the right leg and the patient had a computed tomography scan which showed complete occlusion of the right common iliac and right external iliac. Patient subsequently underwent ultrasound-guided insertion of a right popliteal sheath, right iliac venogram, and TPA thrombolytic lysis,subsequent to that, the patient was taken to the vascular lab and the patient underwent a right iliac venogram, balloon venoplasty right common and external iliac segments, and percutaneous thrombectomy. The patient clinically is improved. The patient has no major swelling in the right lower extremity and the patient's catheter be removed and the patient is currently on anticoagulation with Xarelto. She will be discharged today patient had a recent "infection that may have contributed to his blood clot patient does have family history of blood clots. Patient will be discharged today to follow up with PCP, hematology, vascular surgery as an outpatient PHYSICAL EXAMINATION: GENERAL: The patient is alert and oriented x3, not in any acute distress. Well developed, well nourished. HEENT: Pupils are round and equally reacting to light. EOMI. No scleral icterus. No conjunctival pallor. Normocephalic, atraumatic. No pharyngeal erythema. No thyromegaly. CARDIOVASCULAR: S1 and S2 present. No murmurs, rubs, or gallops. PULMONARY: Chest is clear to auscultation, no wheezing or crackles. ABDOMEN: Soft, nontender, nondistended, normoactive bowel sounds. No palpable organomegaly. MUSCULOSKELETAL: No joint swelling or deformity. EXTREMITIES: No cyanosis, clubbing, or pedal edema. NEUROLOGICAL: Gross neurological examination did not reveal any focal deficits. SKIN: No rashes. Assessment and Plan Assessment: -Extensive DVT of the right common and external iliac . Status post balloon venoplasty and thrombectomy. 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 -Recent COVID-19 infection: Patient is asymptomatic. -Nicotine use: Counseling was provided GI prophylaxis: Pepcid Patient Condition at Discharge: Stable Plan - Discharge Summary New Discharge Prescriptions: New Rivaroxaban [Xarelto Starter Pack] 0 mg PO DIRECTED 30 Days #1 packet No Action Cholecalciferol [Vitamin D3 (25 Mcg = 1000 Iu)] 25 mcg PO DAILY Ibuprofen [Motrin Ib] 800 mg PO Q8H PRN PRN Reason: Pain Or Fever > 100.5 Zinc 50 mg PO DAILY Acetaminophen Tab [Tylenol Tab] 1,000 mg PO Q6HR PRN PRN Reason: Pain Or Fever > 100.5 Vitamin B Complex 1 cap PO DAILY Discharge Medication List Acetaminophen Tab [Tylenol Tab] 1,000 mg PO Q6HR PRN 08/31/21 [History] Cholecalciferol [Vitamin D3 (25 Mcg = 1000 Iu)] 25 mcg PO DAILY 08/31/21 [History] Ibuprofen [Motrin Ib] 800 mg PO Q8H PRN 08/31/21 [History] Vitamin B Complex 1 cap PO DAILY 08/31/21 [History] Zinc 50 mg PO DAILY 08/31/21 [History] Rivaroxaban [Xarelto Starter Pack] 0 mg PO DIRECTED 30 Days #1 packet 09/03/21 [Rx] Follow up Appointment(s)/Referral(s): Justin Arredondo MD [STAFF PHYSICIAN] - 10/02/21 2:30 pm Shahzad Troncoso DO [Doctor of Osteopathic Medicine] - 09/13/21 9:30 am George Zuniga DO [Doctor of Osteopathic Medicine] - 09/14/21 1:15 pm Francesco Covington MD [STAFF PHYSICIAN] - 1 Week Patient Instructions/Handouts: Gastrointestinal Bleeding (DC), Deep Vein Thrombosis (DC), Safe Use of Anticoagulants (DC), Blood Thinners (DC), Deep Vein Thrombosis Prevention (DC) Discharge Disposition: HOME SELF-CARE
--- NOTE | 2021-09-04 13:31 | P.PN ---
Subjective Progress Note Date: 09/04/21 Patient is seen and examined in the ICU as a follow-up for a right iliac deep venous thrombosis who had undergone thrombolysis with EKOS as well as attempt at percutaneous thrombectomy followed by venogram yesterday with utilization of clot treaver. He states that he has no pain. He has been up to the chair into the bathroom. He denies any further pain in the groin. He's been afebrile. He denies any shortness of breath or chest pain. Vital signs have been stable. WBC 7.4 hemoglobin 12.9 platelets 148,000. He was started on Xarelto. Objective - Vital Signs Vital signs: Vital Signs Temp 98.1 F 09/04/21 00:00 Pulse 52 L 09/04/21 07:00 Resp 14 09/04/21 07:00 BP 107/64 09/04/21 06:00 Pulse Ox 95 09/04/21 07:00 Intake & Output 09/03/21 09/04/21 09/04/21 18:59 06:59 18:59 Intake Total 1260 762 Output Total 1600 1600 0 Balance -340 -838 0 Weight 99.7 kg Intake: IV 610 0 Alteplase 10 mg In Sodium 40 Chloride 0.9% 90 ml @ 1 MG/HR 10 mls/hr IV .Q10H [facility] Rx#:[id number] Heparin Sod,Pork in 0.45% 20 NaCl 25,000 unit In 0.45 % NaCl 1 250ml.bag @ 5 mls/hr IV .Q24H [facility] Rx#: [id number] Sodium Chloride 0.9% 1, 250 0 000 ml @ 25 mls/hr IV . Q24H [facility] Rx#:[id number] Intake, IV Titration 100 Amount Alteplase 10 mg In Sodium 100 Chloride 0.9% 90 ml @ 1 MG/HR 10 mls/hr IV .Q10H [facility] Rx#:[id number] Oral 550 762 Output: Urine 1600 1600 0 Other: Voiding Method Urinal Urinal - Exam General appearance: The patient is alert, oriented, appears in no acute distress. HET: Head is normocephalic and atraumatic. Neck: Supple without lymphadenopathy. Trachea midline. Heart: S1 S2. Regular rate and rhythm. Lungs: Clear to auscultation bilaterally. Abdomen: Soft, nontender, nondistended. Extremities: Normal skin color and turgor. No cyanosis, rash, ulceration, clubbing, or edema. Radial and pedal pulses are 2/4 bilaterally. Puncture site right popliteal without any bleeding or bruising, no hematoma noted. Neurological: No focal deficits. Strength and sensation are grossly intact. - Labs CBC & Chem 7: 09/04/21 08:16 09/03/21 06:57 Labs: Abnormal Lab Results - Last 24 Hours (Table) 08/31/21 Range/Units 17:33 Lupus Anticoag aPTT 101 H (<43) Sec(s) Lupus Anticoag PTT Mix 64 H (<43) Sec(s) Dil Gerber Viper Venom 47 H (<44) Sec(s) Microbiology - Last 24 Hours (Table) 08/31/21 01:55 Blood Culture - Preliminary Blood No Growth after 96 hours 08/31/21 01:40 Blood Culture - Preliminary Blood No Growth after 96 hours Assessment and Plan Assessment: 1. Right iliac deep vein thrombosis status post thrombolysis with EKOS, attempt at percutaneous thrombectomy using penumbra device, with repeat venogram and utilization of clot treaver with complete resolution of acute thrombus Plan: 1. Encourage ambulation 2. Xarelto started, prescription sent 3. Follow-up with vascular surgery 1-2 weeks 4. Follow-up with hematology as directed Thank you for this consultation, the patient is cleared from vascular surgery for discharge The impression and plan of care has been dictated as directed. Dr. Chung I performed a history and examination of this patient, discussed the same with the dictator. I agree with the dictator's note ,documented as a scribe. Any additional findings or plans will be noted.
[2021-09-04 14:50] VITALS: BP 121/84; PULSE 58; RESP 16
[2021-09-04] MEDS ORDERED: FAMOTIDINE 20 MG TAB PO SCH (21:00)
--- NOTE | 2021-09-06 12:24 | CDI ---
Documentation Clarification Form Date: 09/06/21 From: Geri Katz Admit Date: 08/31/2021 02:45:00 AM Patient Name: Daniele Naidu Visit Number: [id number] Discharge Date: 09/04/2021 02:30:00 PM ATTENTION: The Clinical Documentation Specialists (CDI) and [facility] Coding Staff appreciate your assistance in clarifying documentation. Please respond to the clarification below the line at the bottom and electronically sign. The CDI & [facility] Coding staff will review the response and follow-up if needed. Please note: Queries are made part of the Legal Health Record. If you have any questions, please contact the author of this message via ITS. Dr. Rasheed Chavez, Patient with right common and external iliac venous thrombosis documented in H&P, PNs, procedure notes and DS and patient is noted to have to COVID 19. Please clarify if there is a relationship between the diagnosis and [device, diagnosis]. History/Risk Factors: family hx of DVTs, vapes Clinical Indicators: Patient with right common and external iliac venous thrombosis and family hx of DVT's. He also was found to have a positive COVID 19. Treatment: Status post balloon venoplasty and thrombectomy. Please clarify the relationship, if any, which is clinically appropriate for this patient: [x ] Iliac thrombosis due to COVID 19 [ ] Iliac thrombosis not due to COVID 19 [ ] Other explanation of clinical findings (please specify) [ ] Unable to determine (no explanation for clinical findings) MTDD
== END 2021-09-04 14:30 | disposition home or self-care (01) | DRG 167 ==
LOC: EC 00:18 → 5NMEDONC 02:45 → 3SCARD 21:23 → 2SICU 09-01 10:52
PROVIDERS: ADMIT Hospitalist; ATTEND Hospitalist
PROC: 3E04317 Introduction of Other Thrombolytic into Central Vein, Percutaneous Approach (ICD-10-PCS; 2021-09-01)
PROC: 047C3ZZ Dilation of Right Common Iliac Artery, Percutaneous Approach (ICD-10-PCS; 2021-09-02)
PROC: 047H3ZZ Dilation of Right External Iliac Artery, Percutaneous Approach (ICD-10-PCS; principal; 2021-09-02 10:00)
PROC: 3E04317 Introduction of Other Thrombolytic into Central Vein, Percutaneous Approach (ICD-10-PCS; principal; 2021-09-02 10:00)
PROC: X2CU3T7 Extirpation of Matter from Right Lower Extremity Vein using Computer-aided Mechanical Aspiration, Percutaneous Approach, New Technology Group 7 (ICD-10-PCS; 2021-09-02 10:00)
PROC: 04CC3ZZ Extirpation of Matter from Right Common Iliac Artery, Percutaneous Approach (ICD-10-PCS; 2021-09-04)
PROC: 04CH3ZZ Extirpation of Matter from Right External Iliac Artery, Percutaneous Approach (ICD-10-PCS; 2021-09-04)
DX: U07.1 COVID-19 (principal); I82.421 Acute embolism and thrombosis of right iliac vein; D69.6 Thrombocytopenia, unspecified; F17.290 Nicotine dependence, other tobacco product, uncomplicated; Z71.6 Tobacco abuse counseling; Z79.899 Other long term (current) drug therapy; Z83.2 Family history of diseases of the blood and blood-forming organs and certain disorders involving the immune mechanism
CPT/HCPCS: 36415; 37184; 37187; 37212; 37213; 37214; 37248; 37252; 37253; 74177; 75820; 80048; 80053; 84403; 84484; 85025; 85027; 85384; 85598; 85610; 85613; 85730; 85732; 86146; 86147; 86769; 87040; 96374; 96375; 99285